=== PATIENT | male | born 1990 | race Caucasian/White ===

== ENCOUNTER 2024-03-16 15:52 | Inpatient (IN) | payer MEDICAID ==
[~2024-03-16] VITALS: Ht 154.2 cm; Wt 107.5 kg
[2024-03-16 17:30] LABS: CHLORIDE 96 mEq/L (98-107); POTASSIUM 4.7 mEq/L (3.5-5.1); SODIUM 133 mEq/L (136-145)
[2024-03-16 17:31] LABS: CARBON DIOXIDE 22 mEq/L (21-32)
[2024-03-16 17:36] LABS: CREATININE 1.3 mg/dL (0.6-1.3); UREA NITROGEN BLOOD 19 mg/dL (9-23)
[2024-03-16 17:40] LABS: INR 1.1; PROTHROMBIN TIME 12.4 sec (9.6-11.0)
[2024-03-16 17:59] LABS: ETHANOL BLOOD < 10 mg/dL (<10); GLUCOSE 474 mg/dL (70-105)
[2024-03-16 18:07] LABS: BASOPHILS % 0.2 % (0.0-2.0); HEMOGLOBIN. 20.4 g/dL (14.0-18.0); LYMPHOCYTES % 2.7 % (20.0-50.0); MEAN CORPUSCULAR HEMOGLOBIN 31.4 pg (28.0-32.0); MEAN CORPUSCULAR HGB CONC 33.3 g/dL (31.0-37.0); MEAN CORPUSCULAR VOLUME 94.1 fL (80.0-94.0); MEAN PLATELET VOLUME 10.7 fl (7.4-10.4); MONOCYTES % 4.8 % (2.0-8.0); NEUTROPHILS % 92.3 % (40.0-76.0); PLATELET 223 x1000/uL (130-400); RED CELL DISTRIBUTION WIDTH 14.8 % (11.6-14.6)
[2024-03-16 18:21] LABS: DIFFERENTIAL COMMENT 1
[2024-03-16 18:24] LABS: HEMATOCRIT. 61.1 % (42.0-52.0)
[2024-03-16] MEDS: SODIUM CHLORIDE 0.9% 2,000 ML IV NR (18:39)
[2024-03-16] MEDS: MORPHINE SULFATE 10 MG/ML INJ (NOT FOR IM USE) IV NR (18:39)
[2024-03-16] MEDS: INSULIN REGULAR (HUMULIN R) 1000UNITS/10ML VIAL IV NR (18:46)
[2024-03-16] MEDS: PIPERACILLIN/TAZO 3.375G/50ML 50 ML IV SCH ×2 (20:46→22:57)
[2024-03-16] MEDS: MORPHINE SULFATE 10 MG/ML INJ (NOT FOR IM USE) IV ONE (20:58)
[2024-03-16] MEDS ORDERED: MAGNESIUM/ALUMINUM HYDROXIDE/SIMETHICONE 30ML UDC PO PRN (22:15)
[2024-03-16] MEDS ORDERED: SODIUM CHLORIDE 0.9% 1,000 ML IV NR (22:15)
[2024-03-16] MEDS ORDERED: GUAIFENESIN 200MG/10ML SUGAR FREE UDC PO PRN (22:15)
[2024-03-16] MEDS ORDERED: DOCUSATE SODIUM 100MG CAPSULE PO PRN (22:15)
[2024-03-16] MEDS ORDERED: DEXTROSE 50% WATER 50ML SYRINGE IV PRN (22:30)
[2024-03-16] MEDS: SODIUM CHLORIDE 0.9% 1,000 ML IV SCH (22:57)
[2024-03-16] MEDS: INSULIN LISPRO 100 UNITS/ML SUBCUT NR (23:22)
[2024-03-17] MEDS: IOHEXOL-300 100 ML BOTTLE ONE (00:37)
[2024-03-17] MEDS: METOPROLOL TARTRATE 5MG/5ML VIAL IV NR (00:48)
[2024-03-17] MEDS: VANCOMYCIN 1.5GM/250ML 250 ML IV NR (00:48)
[2024-03-17 01:24] LABS: CHLORIDE 99 mEq/L (98-107); POTASSIUM 5.9 mEq/L (3.5-5.1); SODIUM 134 mEq/L (136-145)
[2024-03-17 01:26] LABS: CALCIUM 7.7 mg/dL (8.7-10.4); CARBON DIOXIDE 20 mEq/L (21-32)
[2024-03-17 01:30] LABS: GLUCOSE 394 mg/dL (70-105)
[2024-03-17 01:31] LABS: UREA NITROGEN BLOOD 27 mg/dL (9-23)
[2024-03-17 01:32] LABS: ALANINE AMINOTRANSFERASE 74 IU/L (10-49); ALBUMIN 4.2 g/dL (3.2-4.8); ASPARTATE AMINOTRANSFERASE 116 IU/L (<34)
[2024-03-17 01:33] LABS: PHOSPHORUS 2.7 mg/dL (2.5-4.9); PROTEIN TOTAL 6.7 g/dL (6.0-8.3)
[2024-03-17 01:37] LABS: CREATININE 2.3 mg/dL (0.6-1.3)
[2024-03-17] MEDS: ONDANSETRON HCL 4MG/2ML INJ IV PRN (01:40)
[2024-03-17 01:45] VITALS: BP 115/60; PULSE 125; RESP 18; TEMP 36.14
[2024-03-17] MEDS: MORPHINE SULFATE 2 MG/ML INJ (NOT FOR IM USE) IV PRN (03:42)
[2024-03-17] MEDS: PANTOPRAZOLE SODIUM 40 MG/VIAL IV SCH ×2 (03:45→08:33)
[2024-03-17] MEDS: PIPERACILLIN/TAZO 3.375G/50ML 50 ML IV SCH (05:44)
[2024-03-17] MEDS: INSULIN LISPRO 100 UNITS/ML SUBCUT SCH (06:02)
[2024-03-17] MEDS: BLOOD SUGAR DIAGNOSTIC STRIP TEST SCH (07:15)
[2024-03-17 08:00] VITALS: BP 101/61; PULSE 135; RESP 20; TEMP 36.55848; O2SAT 97
[2024-03-17] MEDS: THIAMINE HCL 100MG TABLET PO SCH (08:30)
[2024-03-17] MEDS: FOLIC ACID 1MG TABLET PO SCH (08:30)
[2024-03-17] MEDS: IPRATROPIUM/ALBUTEROL 0.5-3(2.5)MG/3ML NEB HHN PRN (09:37)
[2024-03-17 09:40] VITALS: PULSE 90; RESP 26; O2SAT 92
[2024-03-17] MEDS: VANCOMYCIN 500MG/100ML IV NR (10:06)
[2024-03-17 12:00] VITALS: BP 102/54; PULSE 119; RESP 18; TEMP 36.50292; O2SAT 97
[2024-03-17] MEDS ORDERED: VANCOMYCIN 1G PREMIX 200 ML IV SCH (12:00)
[2024-03-17 12:40] LABS: HEMOGLOBIN. 16.6 g/dL (14.0-18.0); MEAN CORPUSCULAR HEMOGLOBIN 31.2 pg (28.0-32.0); MEAN CORPUSCULAR HGB CONC 31.9 g/dL (31.0-37.0); MEAN CORPUSCULAR VOLUME 97.7 fL (80.0-94.0); MEAN PLATELET VOLUME 11.6 fl (7.4-10.4); PLATELET 218 x1000/uL (130-400); RED BLOOD CELL COUNT 5.32 mill/uL (4.7-6.1); WHITE BLOOD COUNT 20.3 x1000/uL (4.5-11.0)
[2024-03-17 12:45] LABS: DIFFERENTIAL COMMENT 1
[2024-03-17 12:54] LABS: TROPONIN I HIGH SENSITIVITY 49 ng/L (3.0-53)
[2024-03-17 12:55] LABS: CREATINE KINASE 691 IU/L (46-171)
[2024-03-17 12:57] LABS: T4 FREE 1.48 ng/dL (0.89-1.76); THYROID STIMULATING HORMONE 4.92 uIU/mL (0.55-4.78)
[2024-03-17] MEDS ORDERED: LORAZEPAM 1MG TABLET PO PRN (14:00)
[2024-03-17 16:00] VITALS: BP 110/74; PULSE 133; RESP 19; TEMP 36.44736; O2SAT 98
[2024-03-17 17:12] LABS: POTASSIUM 5.4 mEq/L (3.5-5.1)
[2024-03-17 17:13] LABS: CALCIUM 7.2 mg/dL (8.7-10.4)
[2024-03-17 17:20] LABS: CREATINE KINASE MB FRACTION 1.7 ng/mL (0.5-3.6)
[2024-03-17 17:22] LABS: FOLIC ACID (FOLATE) SERUM 5.5 ng/mL (>5.38)
[2024-03-17 17:26] LABS: CREATININE 4.2 mg/dL (0.6-1.3)
[2024-03-17 17:54] LABS: CLARITY URINE TURBID (CLEAR); COLOR URINE ORANGE (YELLOW); GLUCOSE URINE 2+ (NEGATIVE); KETONES URINE TRACE (NEGATIVE); LEUKOCYTE ESTERASE URINE TRACE (NEGATIVE); NITRITE URINE POSITIVE (NEGATIVE); OCCULT BLOOD URINE 2+ (NEGATIVE); PROTEIN URINE 2+ (NEGATIVE); SPECIFIC GRAVITY URINE 1.063 (1.005-1.030)
[2024-03-17 18:15] LABS: *AMPHETAMINES SCREEN URINE NEGATIVE (NEGATIVE); *BARBITURATES SCREEN URINE NEGATIVE (NEGATIVE); *BENZODIAZEPINES SCREEN URINE NEGATIVE (NEGATIVE); *COCAINE SCREEN URINE NEGATIVE (NEGATIVE); METHADONE URINE SCREEN NEGATIVE (NEGATIVE); OPIATES URINE SCREEN PRESUMPTIVE POSITIVE (NEGATIVE); PHENCYCLIDINE URINE SCREEN NEGATIVE (NEGATIVE)
[2024-03-17 18:16] LABS: CANNABINOID URINE SCREEN NEGATIVE (NEGATIVE); ECSTASY MDMA SCREEN URINE NEGATIVE (NEGATIVE)
[2024-03-17 18:27] LABS: SQUAMOUS EPITHELIAL CELL URINE 1+ /lpf (RARE/1+)
[2024-03-17 18:30] LABS: AMORPHOUS SEDIMENT URINE 1+ /lpf; BACTERIA URINE 2+
[2024-03-17] MEDS: SODIUM BICARBONATE 8.4% 50MEQ/50ML SYR IV NR ×2 (18:39→19:15)
[2024-03-17] MEDS: DEXTROSE 50% WATER 50ML SYRINGE IV NR (18:40)
[2024-03-17] MEDS: INSULIN REGULAR (HUMULIN R) 1000UNITS/10ML VIAL IV NR (18:41)
[2024-03-17 20:00] VITALS: BP 120/80; PULSE 106; RESP 18; TEMP 36.6696; O2SAT 95
[2024-03-17 21:32] LABS: CHLORIDE 104 mEq/L (98-107); POTASSIUM 5.9 mEq/L (3.5-5.1); SODIUM 135 mEq/L (136-145)
[2024-03-17 21:33] LABS: CALCIUM 6.7 mg/dL (8.7-10.4); CARBON DIOXIDE 16 mEq/L (21-32)
[2024-03-17 21:38] LABS: GLUCOSE 286 mg/dL (70-105)
[2024-03-17 21:39] LABS: UREA NITROGEN BLOOD 53 mg/dL (9-23)
[2024-03-17] MEDS: METOPROLOL TARTRATE 25MG TABLET PO NR (21:40)
[2024-03-17 21:41] LABS: PHOSPHORUS 1.9 mg/dL (2.5-4.9)
[2024-03-17 21:41] LABS: PLATELET ESTIMATE NORMAL
[2024-03-17] MEDS: SODIUM BICARBONATE 75 MEQ in SODIUM CHLORIDE 0.45% 1,000 ML IV SCH (22:08)
[2024-03-18] VITALS (33 sets, daily range): BP systolic 70–141; BP diastolic 27–86; PULSE 105–211; RESP 17–32; TEMP 36.114–37.55856; O2SAT 92–100
[2024-03-18] MEDS ORDERED: LIDOCAINE HCL 1% 10 MG/ML 10ML VIAL ONE (07:37)
[2024-03-18 07:43] LABS: CARBON DIOXIDE 19 mEq/L (21-32); CHLORIDE 102 mEq/L (98-107); SODIUM 134 mEq/L (136-145)
[2024-03-18 07:44] LABS: CALCIUM 6.2 mg/dL (8.7-10.4)
[2024-03-18 07:49] LABS: GLUCOSE 200 mg/dL (70-105); UREA NITROGEN BLOOD 69 mg/dL (9-23)
[2024-03-18 07:50] LABS: ALANINE AMINOTRANSFERASE 50 IU/L (10-49); ALBUMIN 3.7 g/dL (3.2-4.8); AMYLASE 805 IU/L (30-118); ASPARTATE AMINOTRANSFERASE 111 IU/L (<34); PROTEIN TOTAL 6.1 g/dL (6.0-8.3)
[2024-03-18 07:51] LABS: BILIRUBIN DIRECT 1.1 mg/dL (<=3.0); BILIRUBIN TOTAL 1.9 mg/dL (0.1-1.0); CREATINE KINASE 1088 IU/L (46-171)
[2024-03-18] MEDS: MULTIVITAMINS,THER W-MINERALS TABLET PO SCH (08:54)
[2024-03-18] MEDS ORDERED: THIAMINE HCL 100MG TABLET PO SCH (09:00)
[2024-03-18 09:11] LABS: CREATININE 6.6 mg/dL (0.6-1.3); POTASSIUM 6.7 mEq/L (3.5-5.1)
[2024-03-18] MEDS ORDERED: NALOXONE HCL 0.4MG/ML VIAL IV PRN (09:15)
[2024-03-18 09:17] LABS: TRIGLYCERIDE 202 mg/dL (0-150)
[2024-03-18 09:18] LABS: LDL CHOLESTEROL 24 mg/dL (5-100)
[2024-03-18 09:19] LABS: CHOLESTEROL 75 mg/dL (<200); HDL CHOLESTEROL < 20 mg/dL (>55)
[2024-03-18] MEDS ORDERED: ALBUTEROL (0.083%) 2.5MG/3ML NEB HHN NR (09:30)
[2024-03-18 09:37] LABS: T4 FREE 1.39 ng/dL (0.89-1.76)
[2024-03-18] MEDS: DEXTROSE 50% WATER 50ML SYRINGE IV NR (10:00)
[2024-03-18] MEDS: SODIUM BICARBONATE 8.4% 50MEQ/50ML SYR IV NR (10:01)
[2024-03-18] MEDS: FAMOTIDINE 20MG/2ML VIAL IV SCH (10:01)
[2024-03-18] MEDS: FUROSEMIDE 100MG/10ML VIAL IVP NR (10:01)
[2024-03-18] MEDS: INSULIN REGULAR (HUMULIN R) 1000UNITS/10ML VIAL IV NR (10:03)
[2024-03-18] MEDS: CALCIUM CHLORIDE 1GM/10ML SYR IV NR (10:51)
[2024-03-18 11:38] LABS: BG BASE EXCESS -9.5 mmol/L (-2.0-3.0); BG CARBOXYHEMOGLOBIN 1.6 % (0.5-1.5); BG DEOXYHEMOGLOBIN 4.7 % (0.0-5.0); BG FRACTION INSPIRED OXYGEN 44; BG HCO3 ACT 17.4 mmol/L (21.0-28.0); BG METHEMOGLOBIN 0.5 % (0.5-1.5); BG OXYGEN SATURATION 95.2 % (94.0-98.0); BG OXYHEMOGLOBIN 93.2 % (94.0-98.0); BG PCO2 41.5 mmHg (35.0-48.0); BG PH 7.241 (7.350-7.450); BG SAMPLE SITE RIGHT BRACHIAL; BG TOTAL HEMOGLOBIN 14.1 g/dL (13.5-17.5); BG VENT MODE NASAL CANNULA
[2024-03-18 13:48] LABS: BASOPHILS % 0.2 % (0.0-2.0); DIFFERENTIAL COMMENT 0; EOSINOPHILS % 0.2 % (0.0-5.0); HEMATOCRIT. 38.9 % (42.0-52.0); HEMOGLOBIN. 12.7 g/dL (14.0-18.0); LYMPHOCYTES % 8.4 % (20.0-50.0); MEAN CORPUSCULAR HEMOGLOBIN 31.2 pg (28.0-32.0); MEAN CORPUSCULAR HGB CONC 32.7 g/dL (31.0-37.0); MEAN CORPUSCULAR VOLUME 95.5 fL (80.0-94.0); MEAN PLATELET VOLUME 10.9 fl (7.4-10.4); MONOCYTES % 11.8 % (2.0-8.0); NEUTROPHILS % 79.4 % (40.0-76.0); PLATELET 124 x1000/uL (130-400); RED BLOOD CELL COUNT 4.07 mill/uL (4.7-6.1); RED CELL DISTRIBUTION WIDTH 15.1 % (11.6-14.6); WHITE BLOOD COUNT 9.3 x1000/uL (4.5-11.0)
[2024-03-18 13:52] LABS: CARBON DIOXIDE 24 mEq/L (21-32); CHLORIDE 98 mEq/L (98-107); POTASSIUM 5.3 mEq/L (3.5-5.1); SODIUM 133 mEq/L (136-145)
[2024-03-18 13:57] LABS: GLUCOSE 194 mg/dL (70-105)
[2024-03-18 13:58] LABS: UREA NITROGEN BLOOD 71 mg/dL (9-23)
[2024-03-18 13:59] LABS: ALANINE AMINOTRANSFERASE 43 IU/L (10-49); ALBUMIN 3.3 g/dL (3.2-4.8); ASPARTATE AMINOTRANSFERASE 85 IU/L (<34)
[2024-03-18 14:00] LABS: BILIRUBIN TOTAL 1.5 mg/dL (0.1-1.0); PROTEIN TOTAL 5.3 g/dL (6.0-8.3)
[2024-03-18 14:06] LABS: CREATININE 6.3 mg/dL (0.6-1.3)
[2024-03-18] MEDS: SODIUM CHLORIDE 0.9% 1,000 ML IV SCH (15:26)
[2024-03-18] MEDS: SODIUM ZIRCONIUM CYCLOSILICATE 10GM/PACKET PO NR (15:30)
[2024-03-18 16:21] LABS: BG BASE EXCESS -9.1 mmol/L (-2.0-3.0); BG CARBOXYHEMOGLOBIN 1.6 % (0.5-1.5); BG DEOXYHEMOGLOBIN 3.8 % (0.0-5.0); BG FRACTION INSPIRED OXYGEN 50; BG METHEMOGLOBIN 0.4 % (0.5-1.5); BG OXYGEN SATURATION 96.1 % (94.0-98.0); BG OXYHEMOGLOBIN 94.2 % (94.0-98.0); BG PCO2 43.5 mmHg (35.0-48.0); BG PH 7.235 (7.350-7.450); BG PO2 84.3 mmHg (83.0-108.0); BG SAMPLE SITE RIGHT BRACHIAL; BG TOTAL HEMOGLOBIN 13.9 g/dL (13.5-17.5); BG VENT MODE NASAL CANNULA
[2024-03-18 19:58] LABS: POTASSIUM 5.4 mEq/L (3.5-5.1)
[2024-03-18] MEDS ORDERED: NOREPINEPHRINE 32 MG in DEXT 5% WATER 218 ML IV PRN (20:00)
[2024-03-18] MEDS ORDERED: PROPOFOL 10MG/ML 100ML 100 ML IV PRN (20:00)
[2024-03-18 20:04] LABS: CREATINE KINASE MB FRACTION 3.9 ng/mL (0.5-3.6)
[2024-03-18] MEDS: AMIODARONE 150MG/100ML D5W 100 ML IV NR (20:35)
[2024-03-18] MEDS: VASOPRESSIN 20 UNIT in SODIUM CHLORIDE 0.9% 99 ML IV PRN (20:36)
[2024-03-18] MEDS: SODIUM CHLORIDE 0.9% 1,000 ML IV ONE (20:38)
[2024-03-18] MEDS ORDERED: PHENYLEPHRINE 100 MG in DEXT 5% WATER 240 ML IV PRN (20:45)
[2024-03-18] MEDS ORDERED: NOREPINEPHRINE 32 MG in SODIUM CHLORIDE 0.9% 218 ML IV PRN (20:56)
[2024-03-18 21:01] LABS: BG BASE EXCESS -14.1 mmol/L (-2.0-3.0); BG CARBOXYHEMOGLOBIN 0.7 % (0.5-1.5); BG DEOXYHEMOGLOBIN 6.3 % (0.0-5.0); BG FRACTION INSPIRED OXYGEN 100; BG HCO3 ACT 14.7 mmol/L (21.0-28.0); BG METHEMOGLOBIN 0.4 % (0.5-1.5); BG OXYGEN SATURATION 93.6 % (94.0-98.0); BG OXYHEMOGLOBIN 92.6 % (94.0-98.0); BG PCO2 45.1 mmHg (35.0-48.0); BG PO2 75.9 mmHg (83.0-108.0); BG SAMPLE SITE LEFT RADIAL; BG TOTAL HEMOGLOBIN 12.8 g/dL (13.5-17.5); BG VENT MODE VENT - AC
[2024-03-18 21:13] LABS: POTASSIUM 6.1 mEq/L (3.5-5.1)
[2024-03-18] MEDS: AMIODARONE HCL 450 MG in DEXT 5% WATER 241 ML IV SCH (21:14)
[2024-03-18 21:21] LABS: CREATINE KINASE MB FRACTION 5.8 ng/mL (0.5-3.6)
[2024-03-18] MEDS: PIPERACILLIN/TAZO 3.375G/50ML IV SCH (21:40)
[2024-03-18] MEDS ORDERED: CALCIUM GLUCONATE 100MG/ML 10ML VIAL IV ONE (22:00)
[2024-03-18] MEDS: MIDAZOLAM HCL 100 MG in SODIUM CHLORIDE 0.9% 80 ML IV PRN (22:47)
[2024-03-18] MEDS: SODIUM BICARBONATE 150 MEQ in DEXTROSE 5% WATER 850 ML IV SCH (22:48)
[2024-03-18] MEDS: DEXTROSE 50% WATER 50ML SYRINGE IV SCH (23:27)
[2024-03-18] MEDS: INSULIN REGULAR (HUMULIN R) 1000UNITS/10ML VIAL IV SCH (23:27)
[2024-03-18] MEDS: SODIUM BICARBONATE 8.4% 50MEQ/50ML SYR IV SCH (23:29)
[2024-03-18] MEDS: CALCIUM GLUCONATE 100MG/ML 10ML VIAL IV NR (23:29)
[2024-03-18] MEDS ORDERED: FENTANYL 2500MCG/250ML PMX 250 ML IV PRN (23:45)
[2024-03-19] VITALS (118 sets, daily range): BP systolic 92–147; BP diastolic 55–98; PULSE 99–121; RESP 4–31; TEMP 37.6–38.9; O2SAT 89–100
[2024-03-19] MEDS: FENTANYL CITRATE 1,000 MCG in SODIUM CHLORIDE 0.9% 80 ML IV PRN (00:45)
[2024-03-19 00:48] LABS: CALCIUM 6.4 mg/dL (8.7-10.4)
[2024-03-19 01:01] LABS: BG BASE EXCESS -12.6 mmol/L (-2.0-3.0); BG CARBOXYHEMOGLOBIN 0.3 % (0.5-1.5); BG DEOXYHEMOGLOBIN 1.4 % (0.0-5.0); BG FRACTION INSPIRED OXYGEN 100; BG HCO3 ACT 15.5 mmol/L (21.0-28.0); BG METHEMOGLOBIN 0.5 % (0.5-1.5); BG OXYGEN SATURATION 98.6 % (94.0-98.0); BG OXYHEMOGLOBIN 97.8 % (94.0-98.0); BG PH 7.165 (7.350-7.450); BG PO2 118.3 mmHg (83.0-108.0); BG SAMPLE SITE LEFT RADIAL; BG TOTAL HEMOGLOBIN 12.5 g/dL (13.5-17.5); BG VENT MODE VENT - AC
[2024-03-19 01:03] LABS: CREATININE 8.3 mg/dL (0.6-1.3)
[2024-03-19 01:04] LABS: POTASSIUM 6.9 mEq/L (3.5-5.1)
[2024-03-19] MEDS: SODIUM BICARBONATE 8.4% 50MEQ/50ML SYR IV NR ×2 (01:29→15:54)
[2024-03-19] MEDS: INSULIN REGULAR (HUMULIN R) 1000UNITS/10ML VIAL IV NR ×2 (01:29→15:56)
[2024-03-19] MEDS: CALCIUM GLUCONATE 100MG/ML 10ML VIAL IV NR (01:29)
[2024-03-19] MEDS: DEXTROSE 50% WATER 50ML SYRINGE IV NR ×2 (01:29→15:53)
[2024-03-19] MEDS: SODIUM ZIRCONIUM CYCLOSILICATE 10GM/PACKET PO NR (01:29)
[2024-03-19] MEDS: ACETAMINOPHEN 325MG TABLET PO PRN (01:30)
[2024-03-19 05:55] LABS: BG BASE EXCESS -9.7 mmol/L (-2.0-3.0); BG CARBOXYHEMOGLOBIN 0.2 % (0.5-1.5); BG DEOXYHEMOGLOBIN 0.5 % (0.0-5.0); BG FRACTION INSPIRED OXYGEN 100; BG METHEMOGLOBIN 0.4 % (0.5-1.5); BG OXYGEN SATURATION 99.5 % (94.0-98.0); BG OXYHEMOGLOBIN 98.9 % (94.0-98.0); BG PCO2 40.6 mmHg (35.0-48.0); BG PH 7.241 (7.350-7.450); BG PO2 161.3 mmHg (83.0-108.0); BG SAMPLE SITE RIGHT RADIAL; BG TOTAL HEMOGLOBIN 12.4 g/dL (13.5-17.5); BG VENT MODE VENT - AC
[2024-03-19 06:23] LABS: CREATINE KINASE MB FRACTION 12.2 ng/mL (0.5-3.6); LACTIC ACID 3.1 mmol/L (0.4-2.0)
[2024-03-19 06:24] LABS: CHLORIDE 99 mEq/L (98-107)
[2024-03-19 06:25] LABS: CALCIUM 6.4 mg/dL (8.7-10.4); CARBON DIOXIDE 15 mEq/L (21-32); SODIUM 132 mEq/L (136-145)
[2024-03-19 06:30] LABS: GLUCOSE 281 mg/dL (70-105)
[2024-03-19 06:31] LABS: ALANINE AMINOTRANSFERASE 71 IU/L (10-49); PROTEIN TOTAL 5.7 g/dL (6.0-8.3); TRIGLYCERIDE 240 mg/dL (0-150); UREA NITROGEN BLOOD 97 mg/dL (9-23)
[2024-03-19] MEDS: MIDAZOLAM 100MG/100ML PREMIX IV PRN (06:31)
[2024-03-19 06:32] LABS: ALBUMIN 3.4 g/dL (3.2-4.8); AMYLASE 1104 IU/L (30-118); ASPARTATE AMINOTRANSFERASE 173 IU/L (<34); BILIRUBIN DIRECT 0.8 mg/dL (<=3.0)
[2024-03-19 06:33] LABS: BILIRUBIN TOTAL 1.2 mg/dL (0.1-1.0); PHOSPHORUS 5.7 mg/dL (2.5-4.9)
[2024-03-19 06:37] LABS: HEPATITIS B SURFACE ANTIGEN NEGATIVE (Negative)
[2024-03-19 06:38] LABS: BASOPHILS % 0.2 % (0.0-2.0); DIFFERENTIAL COMMENT 0; EOSINOPHILS % 3.3 % (0.0-5.0); HEMATOCRIT. 35.7 % (42.0-52.0); HEMOGLOBIN. 11.6 g/dL (14.0-18.0); LYMPHOCYTES % 10.5 % (20.0-50.0); MEAN CORPUSCULAR HEMOGLOBIN 31.7 pg (28.0-32.0); MEAN CORPUSCULAR HGB CONC 32.6 g/dL (31.0-37.0); MEAN CORPUSCULAR VOLUME 97.2 fL (80.0-94.0); MEAN PLATELET VOLUME 11.7 fl (7.4-10.4); MONOCYTES % 13.8 % (2.0-8.0); NEUTROPHILS % 72.2 % (40.0-76.0); PLATELET 150 x1000/uL (130-400); RED BLOOD CELL COUNT 3.67 mill/uL (4.7-6.1); RED CELL DISTRIBUTION WIDTH 15.6 % (11.6-14.6); WHITE BLOOD COUNT 9.1 x1000/uL (4.5-11.0)
[2024-03-19 06:56] LABS: POTASSIUM 7.1 mEq/L (3.5-5.1)
[2024-03-19 06:57] LABS: CREATININE 8.8 mg/dL (0.6-1.3)
[2024-03-19 06:58] LABS: HEPATITIS A AB IGM NEGATIVE (Negative); HEPATITIS B CORE AB IGM NEGATIVE (Negative)
[2024-03-19 06:59] LABS: HEPATITIS C AB NON REACTIVE (Neg) (Negative)
[2024-03-19] MEDS: LIDOCAINE HCL 1% 10 MG/ML 10ML VIAL ONE (08:05)
[2024-03-19 11:26] LABS: CREATININE URINE RANDOM 93.8 mg/dL
[2024-03-19 12:05] LABS: HEMATOCRIT 34.4 % (42.0-52.0); MEAN CORPUSCULAR HEMOGLOBIN 30.9 pg (28.0-32.0); MEAN CORPUSCULAR HGB CONC 31.8 g/dL (31.0-37.0); PLATELET 123 x1000/uL (130-400); RED BLOOD CELL COUNT 3.55 mill/uL (4.7-6.1); RED CELL DISTRIBUTION WIDTH 15.9 % (11.6-14.6); WHITE BLOOD COUNT 7.2 x1000/uL (4.5-11.0)
[2024-03-19 14:12] LABS: CREATININE 9.5 mg/dL (0.6-1.3)
[2024-03-19 14:13] LABS: CALCIUM 5.9 mg/dL (8.7-10.4); POTASSIUM 6.8 mEq/L (3.5-5.1)
[2024-03-19 15:37] LABS: HEMATOCRIT 35.9 % (42.0-52.0); HEMOGLOBIN 11.5 g/dL (14.0-18.0); MEAN CORPUSCULAR HEMOGLOBIN 31.1 pg (28.0-32.0); MEAN CORPUSCULAR VOLUME 96.9 fL (80.0-94.0); PLATELET 127 x1000/uL (130-400); RED CELL DISTRIBUTION WIDTH 15.9 % (11.6-14.6); WHITE BLOOD COUNT 7.9 x1000/uL (4.5-11.0)
[2024-03-19] MEDS: CALCIUM GLUCONATE 1GM PREMIX 50 ML IV NR (16:08)
[2024-03-19] MEDS: ACETAMINOPHEN 650MG/20.3ML UDC PO PRN (16:30)
[2024-03-19] MEDS: ACETAMINOPHEN 1000MG/100ML 100 ML IV NR (20:58)
[2024-03-20] VITALS (104 sets, daily range): BP systolic 113–150; BP diastolic 77–104; PULSE 106–136; RESP 16–57; TEMP 37.2–38.8; O2SAT 91–100
[2024-03-20] MEDS: DEXTROSE 50% WATER 50ML SYRINGE IV SCH (01:45)
[2024-03-20] MEDS: INSULIN REGULAR (HUMULIN R) 1000UNITS/10ML VIAL IV SCH (01:45)
[2024-03-20] MEDS: CALCIUM CHLORIDE 1GM/10ML SYR IV SCH (01:45)
[2024-03-20] MEDS: SODIUM BICARBONATE 8.4% 50MEQ/50ML SYR IV SCH (01:45)
[2024-03-20] MEDS: SODIUM POLYSTYRENE SULFONATE 15 G/60 ML BOT PO SCH (01:45)
[2024-03-20] MEDS: SODIUM ZIRCONIUM CYCLOSILICATE 10GM/PACKET PO SCH (01:45)
[2024-03-20 04:44] LABS: BG CARBOXYHEMOGLOBIN 0.4 % (0.5-1.5); BG DEOXYHEMOGLOBIN 2.5 % (0.0-5.0); BG FRACTION INSPIRED OXYGEN 50; BG HCO3 ACT 24.7 mmol/L (21.0-28.0); BG OXYGEN SATURATION 97.5 % (94.0-98.0); BG OXYHEMOGLOBIN 97.1 % (94.0-98.0); BG PCO2 32.5 mmHg (35.0-48.0); BG PH 7.498 (7.350-7.450); BG PO2 86.7 mmHg (83.0-108.0); BG SAMPLE SITE RIGHT RADIAL; BG TOTAL HEMOGLOBIN 13.5 g/dL (13.5-17.5); BG VENT MODE VENT - AC
[2024-03-20 06:33] LABS: BASOPHILS % 0.3 % (0.0-2.0); HEMATOCRIT. 34.4 % (42.0-52.0); HEMOGLOBIN. 11.5 g/dL (14.0-18.0); LYMPHOCYTES % 8.3 % (20.0-50.0); MEAN CORPUSCULAR HEMOGLOBIN 31.4 pg (28.0-32.0); MEAN CORPUSCULAR HGB CONC 33.3 g/dL (31.0-37.0); MEAN CORPUSCULAR VOLUME 94.2 fL (80.0-94.0); MEAN PLATELET VOLUME 10.8 fl (7.4-10.4); MONOCYTES % 9.5 % (2.0-8.0); NEUTROPHILS % 80.9 % (40.0-76.0); PLATELET 151 x1000/uL (130-400); RED BLOOD CELL COUNT 3.66 mill/uL (4.7-6.1); RED CELL DISTRIBUTION WIDTH 15.4 % (11.6-14.6); WHITE BLOOD COUNT 8.5 x1000/uL (4.5-11.0)
[2024-03-20 06:46] LABS: CHLORIDE 98 mEq/L (98-107); POTASSIUM 4.4 mEq/L (3.5-5.1); SODIUM 138 mEq/L (136-145)
[2024-03-20 06:49] LABS: CARBON DIOXIDE 22 mEq/L (21-32)
[2024-03-20 06:50] LABS: CALCIUM 6.9 mg/dL (8.7-10.4)
[2024-03-20 06:54] LABS: PROTEIN TOTAL 5.9 g/dL (6.0-8.3)
[2024-03-20 06:55] LABS: ALANINE AMINOTRANSFERASE 47 IU/L (10-49); BILIRUBIN TOTAL 1.2 mg/dL (0.1-1.0); GLUCOSE 228 mg/dL (70-105); UREA NITROGEN BLOOD 88 mg/dL (9-23)
[2024-03-20 06:56] LABS: AMYLASE 505 IU/L (30-118)
[2024-03-20 06:57] LABS: ALBUMIN 3.5 g/dL (3.2-4.8); ASPARTATE AMINOTRANSFERASE 73 IU/L (<34); BILIRUBIN DIRECT 0.7 mg/dL (<=3.0); PHOSPHORUS 4.3 mg/dL (2.5-4.9)
[2024-03-20 07:05] LABS: CREATININE 8.8 mg/dL (0.6-1.3)
[2024-03-20] MEDS: ACETAMINOPHEN 1000MG/100ML 100 ML IV NR (12:01)
[2024-03-20] MEDS: VANCOMYCIN 750MG PREMIX 150 ML IV NR (12:01)
[2024-03-20] MEDS: MEROPENEM 500MG/50ML 50 ML IV SCH (22:16)
[2024-03-21] VITALS (103 sets, daily range): BP systolic 112–152; BP diastolic 74–121; PULSE 83–123; RESP 20–42; TEMP 36.55848–38.16972; O2SAT 96–100
[2024-03-21 05:48] LABS: POTASSIUM 4.3 mEq/L (3.5-5.1)
[2024-03-21 05:49] LABS: CALCIUM 6.6 mg/dL (8.7-10.4); HEMATOCRIT. 35.1 % (42.0-52.0); HEMOGLOBIN. 11.5 g/dL (14.0-18.0); MEAN CORPUSCULAR HEMOGLOBIN 30.8 pg (28.0-32.0); MEAN CORPUSCULAR HGB CONC 32.8 g/dL (31.0-37.0); PLATELET 135 x1000/uL (130-400); RED BLOOD CELL COUNT 3.73 mill/uL (4.7-6.1); RED CELL DISTRIBUTION WIDTH 15.5 % (11.6-14.6); WHITE BLOOD COUNT 10.8 x1000/uL (4.5-11.0)
[2024-03-21 05:57] LABS: BILIRUBIN TOTAL 0.8 mg/dL (0.1-1.0)
[2024-03-21 06:16] LABS: CREATININE 10.9 mg/dL (0.6-1.3)
[2024-03-21 06:23] LABS: DIFFERENTIAL COMMENT 1
[2024-03-21 07:40] LABS: ERYTHROCYTE SEDIMENTATION RATE 94 mm/hr (0-15)
[2024-03-21 17:22] LABS: NUCLEATED RED BLOOD CELLS 2 /100 WBC; PLATELET ESTIMATE NORMAL
[2024-03-21] MEDS: CHLORPROMAZINE HCL 25 MG TABLET PO NR (17:43)
[2024-03-21 22:08] LABS: AMMONIA < 17 uMol/L (<32)
[2024-03-22] VITALS (102 sets, daily range): BP systolic 110–160; BP diastolic 56–122; PULSE 98–140; RESP 16–36; TEMP 98.6–103; O2SAT 95–100
[2024-03-22 06:31] LABS: HEMATOCRIT. 33.2 % (42.0-52.0); HEMOGLOBIN. 10.9 g/dL (14.0-18.0); MEAN CORPUSCULAR HEMOGLOBIN 30.8 pg (28.0-32.0); MEAN CORPUSCULAR HGB CONC 32.9 g/dL (31.0-37.0); MEAN CORPUSCULAR VOLUME 93.6 fL (80.0-94.0); PLATELET 145 x1000/uL (130-400); RED BLOOD CELL COUNT 3.55 mill/uL (4.7-6.1); RED CELL DISTRIBUTION WIDTH 15.5 % (11.6-14.6); WHITE BLOOD COUNT 14.4 x1000/uL (4.5-11.0)
[2024-03-22 06:35] LABS: DIFFERENTIAL COMMENT 1
[2024-03-22 06:38] LABS: CARBON DIOXIDE 17 mEq/L (21-32); CHLORIDE 91 mEq/L (98-107); POTASSIUM 4.7 mEq/L (3.5-5.1); SODIUM 131 mEq/L (136-145)
[2024-03-22 06:39] LABS: CALCIUM 7.6 mg/dL (8.7-10.4)
[2024-03-22 06:44] LABS: GLUCOSE 268 mg/dL (70-105); UREA NITROGEN BLOOD 100 mg/dL (9-23)
[2024-03-22 06:45] LABS: ALANINE AMINOTRANSFERASE 24 IU/L (10-49); ALBUMIN 3.3 g/dL (3.2-4.8); AMYLASE 53 IU/L (30-118); ASPARTATE AMINOTRANSFERASE 55 IU/L (<34)
[2024-03-22 06:46] LABS: BILIRUBIN DIRECT 0.4 mg/dL (<=3.0); BILIRUBIN TOTAL 0.6 mg/dL (0.1-1.0); PROTEIN TOTAL 5.7 g/dL (6.0-8.3)
[2024-03-22 08:09] LABS: PHOSPHORUS 9.4 mg/dL (2.5-4.9)
[2024-03-22] MEDS: LANTHANUM CARBONATE 500MG CHEW TABLET PO SCH (08:47)
[2024-03-22 10:08] LABS: BG BASE EXCESS -10.3 mmol/L (-2.0-3.0); BG CARBOXYHEMOGLOBIN 0.3 % (0.5-1.5); BG DEOXYHEMOGLOBIN 2.7 % (0.0-5.0); BG FRACTION INSPIRED OXYGEN 40; BG HCO3 ACT 14.4 mmol/L (21.0-28.0); BG METHEMOGLOBIN 0.3 % (0.5-1.5); BG OXYGEN SATURATION 97.3 % (94.0-98.0); BG OXYHEMOGLOBIN 96.7 % (94.0-98.0); BG PCO2 28.8 mmHg (35.0-48.0); BG PH 7.317 (7.350-7.450); BG PO2 94.2 mmHg (83.0-108.0); BG SAMPLE SITE RIGHT RADIAL; BG TOTAL HEMOGLOBIN 12.6 g/dL (13.5-17.5); BG VENT MODE VENT - AC
[2024-03-22] MEDS: PHENOBARBITAL SODIUM 130MG/ML 1ML IV NR (11:17)
[2024-03-22] MEDS: MULTIVITAMINS,THER W-MINERALS TABLET PO SCH (11:30)
[2024-03-22] MEDS: THIAMINE HCL 100 MG/1 ML 2ML VIAL IM SCH (11:30)
[2024-03-22] MEDS: LORAZEPAM 2MG/ML INJ IV PRN (12:28)
[2024-03-23] VITALS (106 sets, daily range): BP systolic 100–157; BP diastolic 68–110; PULSE 100–127; RESP 15–34; TEMP 38.55864–38.6142; O2SAT 95–100
[2024-03-23 06:10] LABS: HEMATOCRIT. 35.5 % (42.0-52.0); HEMOGLOBIN. 11.6 g/dL (14.0-18.0); MEAN CORPUSCULAR HEMOGLOBIN 30.6 pg (28.0-32.0); MEAN CORPUSCULAR HGB CONC 32.7 g/dL (31.0-37.0); MEAN CORPUSCULAR VOLUME 93.6 fL (80.0-94.0); MEAN PLATELET VOLUME 10.7 fl (7.4-10.4); PLATELET 169 x1000/uL (130-400); RED BLOOD CELL COUNT 3.79 mill/uL (4.7-6.1); WHITE BLOOD COUNT 18.1 x1000/uL (4.5-11.0)
[2024-03-23 06:32] LABS: CHLORIDE 89 mEq/L (98-107); POTASSIUM 5.8 mEq/L (3.5-5.1); SODIUM 128 mEq/L (136-145)
[2024-03-23 06:33] LABS: CARBON DIOXIDE 18 mEq/L (21-32)
[2024-03-23 06:38] LABS: GLUCOSE 344 mg/dL (70-105)
[2024-03-23 06:39] LABS: AMYLASE 42 IU/L (30-118)
[2024-03-23 06:40] LABS: ALANINE AMINOTRANSFERASE 20 IU/L (10-49); ALBUMIN 3.4 g/dL (3.2-4.8); ASPARTATE AMINOTRANSFERASE 56 IU/L (<34)
[2024-03-23 06:41] LABS: BILIRUBIN DIRECT 0.4 mg/dL (<=3.0); BILIRUBIN TOTAL 0.6 mg/dL (0.1-1.0); PROTEIN TOTAL 6.1 g/dL (6.0-8.3)
[2024-03-23 06:48] LABS: CREATININE 11.7 mg/dL (0.6-1.3)
[2024-03-23 06:49] LABS: UREA NITROGEN BLOOD 128 mg/dL (9-23)
[2024-03-23] MEDS ORDERED: SODIUM POLYSTYRENE SULFONATE 15 G/60 ML BOT PO ONE (07:15)
[2024-03-23 07:24] LABS: DIFFERENTIAL COMMENT 1
[2024-03-23] MEDS: SODIUM ZIRCONIUM CYCLOSILICATE 10GM/PACKET PO NR (09:18)
[2024-03-23 17:17] LABS: ANISOCYTOSIS 1+; PLATELET ESTIMATE NORMAL
[2024-03-23 17:50] LABS: ANISOCYTOSIS 1+; PLATELET ESTIMATE SLIGHTLY DECREASED
[2024-03-23] MEDS ORDERED: VANCOMYCIN 750MG PREMIX 150 ML IV NR (18:00)
[2024-03-23 22:04] LABS: BG CARBOXYHEMOGLOBIN 0.3 % (0.5-1.5); BG DEOXYHEMOGLOBIN 1.8 % (0.0-5.0); BG FRACTION INSPIRED OXYGEN 40; BG HCO3 ACT 17.6 mmol/L (21.0-28.0); BG METHEMOGLOBIN 0.1 % (0.5-1.5); BG OXYGEN SATURATION 98.2 % (94.0-98.0); BG OXYHEMOGLOBIN 97.8 % (94.0-98.0); BG PCO2 29.3 mmHg (35.0-48.0); BG PH 7.397 (7.350-7.450); BG PO2 104.6 mmHg (83.0-108.0); BG SAMPLE SITE RIGHT RADIAL; BG TOTAL HEMOGLOBIN 12.7 g/dL (13.5-17.5); BG TOTAL RESPIRATORY RATE 22 b/min; BG VENT MODE VENT - P/C
[2024-03-24] VITALS (104 sets, daily range): BP systolic 118–181; BP diastolic 72–116; PULSE 98–128; RESP 15–37; TEMP 98.2–101.8; O2SAT 97–100
[2024-03-24 07:19] LABS: HEMOGLOBIN. 11.3 g/dL (14.0-18.0); MEAN CORPUSCULAR HEMOGLOBIN 31.1 pg (28.0-32.0); MEAN CORPUSCULAR HGB CONC 33.2 g/dL (31.0-37.0); MEAN CORPUSCULAR VOLUME 93.6 fL (80.0-94.0); MEAN PLATELET VOLUME 10.9 fl (7.4-10.4); PLATELET 217 x1000/uL (130-400); RED BLOOD CELL COUNT 3.64 mill/uL (4.7-6.1); RED CELL DISTRIBUTION WIDTH 16.4 % (11.6-14.6)
[2024-03-24 07:23] LABS: DIFFERENTIAL COMMENT 1
[2024-03-24 08:01] LABS: CARBON DIOXIDE 15 mEq/L (21-32); CHLORIDE 93 mEq/L (98-107); POTASSIUM 4.9 mEq/L (3.5-5.1); SODIUM 130 mEq/L (136-145)
[2024-03-24 08:02] LABS: CALCIUM 8.5 mg/dL (8.7-10.4)
[2024-03-24 08:06] LABS: PLATELET ESTIMATE NORMAL
[2024-03-24 08:07] LABS: ANISOCYTOSIS 1+; GLUCOSE 286 mg/dL (70-105)
[2024-03-24 08:08] LABS: ALANINE AMINOTRANSFERASE 16 IU/L (10-49); ALBUMIN 3.2 g/dL (3.2-4.8); AMYLASE 35 IU/L (30-118); ASPARTATE AMINOTRANSFERASE 48 IU/L (<34); PROTEIN TOTAL 5.7 g/dL (6.0-8.3)
[2024-03-24 08:09] LABS: BILIRUBIN DIRECT 0.3 mg/dL (<=3.0); BILIRUBIN TOTAL 0.5 mg/dL (0.1-1.0); CREATINE KINASE 282 IU/L (46-171)
[2024-03-24 09:02] LABS: CREATININE 10.5 mg/dL (0.6-1.3); UREA NITROGEN BLOOD 111 mg/dL (9-23)
[2024-03-24 09:58] LABS: BG BASE EXCESS -8.9 mmol/L (-2.0-3.0); BG CARBOXYHEMOGLOBIN 0.8 % (0.5-1.5); BG DEOXYHEMOGLOBIN 3.4 % (0.0-5.0); BG FRACTION INSPIRED OXYGEN 40; BG METHEMOGLOBIN 0.2 % (0.5-1.5); BG OXYGEN SATURATION 96.6 % (94.0-98.0); BG OXYHEMOGLOBIN 95.6 % (94.0-98.0); BG PCO2 36.8 mmHg (35.0-48.0); BG PH 7.283 (7.350-7.450); BG SAMPLE SITE RIGHT BRACHIAL; BG TOTAL HEMOGLOBIN 12.7 g/dL (13.5-17.5); BG TOTAL RESPIRATORY RATE 29 b/min; BG VENT MODE VENT - P/C
[2024-03-24] MEDS: CLONIDINE 0.1MG TABLET PO PRN (21:03)
[2024-03-25] VITALS (87 sets, daily range): BP systolic 105–154; BP diastolic 66–103; PULSE 87–119; RESP 19–32; TEMP 37.39188–37.503; O2SAT 96–99
[2024-03-25] MEDS: IBUPROFEN 400MG TABLET PO NR (00:40)
[2024-03-25 06:40] LABS: CHLORIDE 93 mEq/L (98-107)
[2024-03-25 06:41] LABS: CARBON DIOXIDE 17 mEq/L (21-32); SODIUM 132 mEq/L (136-145)
[2024-03-25 06:42] LABS: CALCIUM 8.6 mg/dL (8.7-10.4)
[2024-03-25 06:46] LABS: GLUCOSE 348 mg/dL (70-105)
[2024-03-25 06:47] LABS: PROTEIN TOTAL 5.8 g/dL (6.0-8.3)
[2024-03-25 06:48] LABS: ALANINE AMINOTRANSFERASE 12 IU/L (10-49); AMYLASE 30 IU/L (30-118); ASPARTATE AMINOTRANSFERASE 44 IU/L (<34); LACTATE DEHYDROGENASE 682 IU/L (120-246)
[2024-03-25 06:49] LABS: BILIRUBIN DIRECT 0.3 mg/dL (<=3.0); BILIRUBIN TOTAL 0.5 mg/dL (0.1-1.0)
[2024-03-25 06:58] LABS: CREATININE 11.9 mg/dL (0.6-1.3); UREA NITROGEN BLOOD 148 mg/dL (9-23)
[2024-03-25 07:17] LABS: HEMATOCRIT. 33.8 % (42.0-52.0); MEAN CORPUSCULAR HEMOGLOBIN 30.2 pg (28.0-32.0); MEAN CORPUSCULAR HGB CONC 32.5 g/dL (31.0-37.0); MEAN CORPUSCULAR VOLUME 92.9 fL (80.0-94.0); MEAN PLATELET VOLUME 10.4 fl (7.4-10.4); PLATELET 247 x1000/uL (130-400); RED BLOOD CELL COUNT 3.63 mill/uL (4.7-6.1); WHITE BLOOD COUNT 21.9 x1000/uL (4.5-11.0)
[2024-03-25 08:08] LABS: DIFFERENTIAL COMMENT 1
[2024-03-25 10:53] LABS: BG BASE EXCESS -7.7 mmol/L (-2.0-3.0); BG DEOXYHEMOGLOBIN 2.7 % (0.0-5.0); BG FRACTION INSPIRED OXYGEN 40; BG HCO3 ACT 18.2 mmol/L (21.0-28.0); BG METHEMOGLOBIN 0.3 % (0.5-1.5); BG OXYGEN SATURATION 97.3 % (94.0-98.0); BG PCO2 38.7 mmHg (35.0-48.0); BG PH 7.291 (7.350-7.450); BG PO2 103.2 mmHg (83.0-108.0); BG SAMPLE SITE RIGHT RADIAL; BG TOTAL HEMOGLOBIN 11.6 g/dL (13.5-17.5); BG VENT MODE VENT - P/C
[2024-03-25] MEDS: ACETAMINOPHEN 1000MG/100ML 100 ML IV NR (17:56)
[2024-03-25 20:54] LABS: PLATELET ESTIMATE NORMAL
[2024-03-26] VITALS (62 sets, daily range): BP systolic 112–161; BP diastolic 87–109; PULSE 97–116; RESP 17–46; TEMP 37.1–38.2; O2SAT 95–100
[2024-03-26 05:25] LABS: HEMATOCRIT. 35.4 % (42.0-52.0); HEMOGLOBIN. 11.5 g/dL (14.0-18.0); MEAN CORPUSCULAR HEMOGLOBIN 30.4 pg (28.0-32.0); MEAN CORPUSCULAR HGB CONC 32.6 g/dL (31.0-37.0); MEAN CORPUSCULAR VOLUME 93.4 fL (80.0-94.0); MEAN PLATELET VOLUME 10.9 fl (7.4-10.4); PLATELET 306 x1000/uL (130-400); RED BLOOD CELL COUNT 3.79 mill/uL (4.7-6.1); RED CELL DISTRIBUTION WIDTH 16.3 % (11.6-14.6); WHITE BLOOD COUNT 23.7 x1000/uL (4.5-11.0)
[2024-03-26 05:32] LABS: DIFFERENTIAL COMMENT 1
[2024-03-26 06:00] LABS: POTASSIUM 5.2 mEq/L (3.5-5.1)
[2024-03-26 06:35] LABS: CREATININE 11.1 mg/dL (0.6-1.3)
[2024-03-26 11:57] LABS: BG BASE EXCESS -8.1 mmol/L (-2.0-3.0); BG DEOXYHEMOGLOBIN 3.3 % (0.0-5.0); BG FRACTION INSPIRED OXYGEN 40; BG HCO3 ACT 16.3 mmol/L (21.0-28.0); BG METHEMOGLOBIN 0.3 % (0.5-1.5); BG OXYGEN SATURATION 96.7 % (94.0-98.0); BG OXYHEMOGLOBIN 96.4 % (94.0-98.0); BG PCO2 30.4 mmHg (35.0-48.0); BG PH 7.348 (7.350-7.450); BG PO2 95.9 mmHg (83.0-108.0); BG SAMPLE SITE RIGHT RADIAL; BG TOTAL HEMOGLOBIN 12.3 g/dL (13.5-17.5); BG VENT MODE VENT - AC/PC
[2024-03-26] MEDS: MEROPENEM 500 MG in SODIUM CHLORIDE 0.9% 100 ML IV SCH (20:27)
[2024-03-26 21:43] LABS: PLATELET ESTIMATE NORMAL
[2024-03-27] VITALS (48 sets, daily range): BP systolic 113–161; BP diastolic 85–118; PULSE 88–121; RESP 15–27; TEMP 37.28076–37.89192; O2SAT 96–100
[2024-03-27] MEDS: ACETAMINOPHEN 650MG SUPP PR PRN (02:24)
[2024-03-27 06:53] LABS: CHLORIDE 94 mEq/L (98-107); HEMATOCRIT. 34.7 % (42.0-52.0); HEMOGLOBIN. 11.3 g/dL (14.0-18.0); MEAN CORPUSCULAR HEMOGLOBIN 30.3 pg (28.0-32.0); MEAN CORPUSCULAR HGB CONC 32.4 g/dL (31.0-37.0); MEAN CORPUSCULAR VOLUME 93.6 fL (80.0-94.0); MEAN PLATELET VOLUME 10.7 fl (7.4-10.4); PLATELET 312 x1000/uL (130-400); POTASSIUM 5.4 mEq/L (3.5-5.1); RED BLOOD CELL COUNT 3.71 mill/uL (4.7-6.1); RED CELL DISTRIBUTION WIDTH 16.2 % (11.6-14.6); SODIUM 136 mEq/L (136-145); WHITE BLOOD COUNT 22.4 x1000/uL (4.5-11.0)
[2024-03-27 06:54] LABS: CARBON DIOXIDE 19 mEq/L (21-32)
[2024-03-27 06:59] LABS: GLUCOSE 285 mg/dL (70-105)
[2024-03-27 07:00] LABS: DIFFERENTIAL COMMENT 1
[2024-03-27 07:27] LABS: CREATININE 12.3 mg/dL (0.6-1.3); UREA NITROGEN BLOOD 171 mg/dL (9-23)
[2024-03-27 07:31] LABS: PHOSPHORUS 14.2 mg/dL (2.5-4.9)
[2024-03-27] MEDS: LANTHANUM CARBONATE 500MG CHEW TABLET PO SCH (08:55)
[2024-03-27] MEDS: IPRATROPIUM BROMIDE (0.02%) 0.5MG/2.5ML NEB HHN SCH (08:57)
[2024-03-27] MEDS: BLOOD SUGAR DIAGNOSTIC STRIP TEST SCH (11:40)
[2024-03-27 13:42] LABS: BG BASE EXCESS -4.7 mmol/L (-2.0-3.0); BG CARBOXYHEMOGLOBIN 0.4 % (0.5-1.5); BG DEOXYHEMOGLOBIN 3.2 % (0.0-5.0); BG FRACTION INSPIRED OXYGEN 40; BG METHEMOGLOBIN 0.3 % (0.5-1.5); BG OXYGEN SATURATION 96.8 % (94.0-98.0); BG OXYHEMOGLOBIN 96.1 % (94.0-98.0); BG PCO2 31.9 mmHg (35.0-48.0); BG PH 7.393 (7.350-7.450); BG PO2 90.5 mmHg (83.0-108.0); BG SAMPLE SITE RIGHT RADIAL; BG TOTAL HEMOGLOBIN 14.9 g/dL (13.5-17.5); BG VENT MODE VENT - P/C
[2024-03-27] MEDS ORDERED: MEROPENEM 500 MG in SODIUM CHLORIDE 0.9% 100 ML IV SCH (15:00)
[2024-03-27 15:51] LABS: PLATELET ESTIMATE NORMAL
[2024-03-27] MEDS ORDERED: METOCLOPRAMIDE HCL 10MG/2ML VIAL IV SCH (16:00)
[2024-03-27] MEDS: MEROPENEM 500 MG in DEXTROSE 5% WATER 50 ML IV SCH (19:02)
[2024-03-27] MEDS: METOCLOPRAMIDE HCL 10MG/2ML VIAL IV SCH (19:03)
[2024-03-27] MEDS: ACETAMINOPHEN 1000MG/100ML 100 ML IV PRN (23:35)
[2024-03-28] VITALS (74 sets, daily range): BP systolic 101–155; BP diastolic 71–112; PULSE 102–129; RESP 16–31; TEMP 37.7–38.3364; O2SAT 93–100
[2024-03-28 05:01] LABS: HEMATOCRIT. 33.9 % (42.0-52.0); HEMOGLOBIN. 11.1 g/dL (14.0-18.0); MEAN CORPUSCULAR HEMOGLOBIN 30.2 pg (28.0-32.0); MEAN CORPUSCULAR HGB CONC 32.8 g/dL (31.0-37.0); MEAN PLATELET VOLUME 10.6 fl (7.4-10.4); PLATELET 326 x1000/uL (130-400); RED BLOOD CELL COUNT 3.68 mill/uL (4.7-6.1); RED CELL DISTRIBUTION WIDTH 15.8 % (11.6-14.6); WHITE BLOOD COUNT 20.8 x1000/uL (4.5-11.0)
[2024-03-28 05:11] LABS: DIFFERENTIAL COMMENT 1
[2024-03-28 05:19] LABS: POTASSIUM 5.6 mEq/L (3.5-5.1)
[2024-03-28 05:20] LABS: CALCIUM 8.5 mg/dL (8.7-10.4)
[2024-03-28 05:54] LABS: CREATININE 11.3 mg/dL (0.6-1.3)
[2024-03-28 16:52] LABS: PLATELET ESTIMATE NORMAL
[2024-03-29] VITALS (72 sets, daily range): BP systolic 98–183; BP diastolic 62–169; PULSE 78–130; RESP 13–46; TEMP 37.2252; O2SAT 93–100
[2024-03-29 06:02] LABS: HEMATOCRIT. 34.6 % (42.0-52.0); HEMOGLOBIN. 11.1 g/dL (14.0-18.0); MEAN CORPUSCULAR HEMOGLOBIN 29.8 pg (28.0-32.0); MEAN CORPUSCULAR HGB CONC 32.1 g/dL (31.0-37.0); MEAN CORPUSCULAR VOLUME 92.9 fL (80.0-94.0); MEAN PLATELET VOLUME 10.3 fl (7.4-10.4); PLATELET 352 x1000/uL (130-400); POTASSIUM 6.1 mEq/L (3.5-5.1); RED BLOOD CELL COUNT 3.73 mill/uL (4.7-6.1); RED CELL DISTRIBUTION WIDTH 15.7 % (11.6-14.6); WHITE BLOOD COUNT 15.3 x1000/uL (4.5-11.0)
[2024-03-29 06:03] LABS: CALCIUM 8.5 mg/dL (8.7-10.4)
[2024-03-29 06:27] LABS: CREATININE 10.5 mg/dL (0.6-1.3)
[2024-03-29] MEDS: CALCIUM CHLORIDE 1GM/10ML SYR IV NR (07:14)
[2024-03-29] MEDS: DEXTROSE 50% WATER 50ML SYRINGE IV NR (07:15)
[2024-03-29] MEDS: SODIUM BICARBONATE 8.4% 50MEQ/50ML SYR IV NR (07:15)
[2024-03-29] MEDS: INSULIN REGULAR (HUMULIN R) 1000UNITS/10ML VIAL IV NR (07:16)
[2024-03-29] MEDS ORDERED: LIDOCAINE HCL/EPINEPHRINE 1%-EPI 1:100,000 20ML VIAL ONE (07:21)
[2024-03-29 07:25] LABS: DIFFERENTIAL COMMENT 1
[2024-03-29] MEDS: ALBUTEROL (0.083%) 2.5MG/3ML NEB HHN NR (08:11)
[2024-03-29] MEDS: INSULIN GLARGINE 100 UNITS/ML SUBCUT SCH (08:55)
[2024-03-29] MEDS: SODIUM ZIRCONIUM CYCLOSILICATE 10GM/PACKET PO NR (08:56)
[2024-03-29] MEDS: INSULIN LISPRO 100 UNITS/ML SUBCUT NR ×2 (09:06→12:39)
[2024-03-29 10:38] LABS: HEMOGLOBIN. 11.3 g/dL (14.0-18.0); MEAN CORPUSCULAR HEMOGLOBIN 30.1 pg (28.0-32.0); MEAN CORPUSCULAR HGB CONC 32.3 g/dL (31.0-37.0); MEAN CORPUSCULAR VOLUME 93.2 fL (80.0-94.0); MEAN PLATELET VOLUME 10.4 fl (7.4-10.4); PLATELET 310 x1000/uL (130-400); RED BLOOD CELL COUNT 3.75 mill/uL (4.7-6.1); RED CELL DISTRIBUTION WIDTH 15.8 % (11.6-14.6)
[2024-03-29 10:42] LABS: POTASSIUM 5.8 mEq/L (3.5-5.1)
[2024-03-29 10:46] LABS: BG BASE EXCESS -6.5 mmol/L (-2.0-3.0); BG CARBOXYHEMOGLOBIN 0.4 % (0.5-1.5); BG DEOXYHEMOGLOBIN 2.7 % (0.0-5.0); BG FRACTION INSPIRED OXYGEN 30; BG HCO3 ACT 18.4 mmol/L (21.0-28.0); BG METHEMOGLOBIN 0.1 % (0.5-1.5); BG OXYGEN SATURATION 97.3 % (94.0-98.0); BG OXYHEMOGLOBIN 96.8 % (94.0-98.0); BG PCO2 34.5 mmHg (35.0-48.0); BG PH 7.345 (7.350-7.450); BG PO2 104.2 mmHg (83.0-108.0); BG SAMPLE SITE RIGHT RADIAL; BG TOTAL HEMOGLOBIN 11.1 g/dL (13.5-17.5); BG TOTAL RESPIRATORY RATE 21 b/min; BG VENT MODE VENT - P/C
[2024-03-29 11:02] LABS: DIFFERENTIAL COMMENT 1
[2024-03-29 11:19] LABS: CREATININE 10.8 mg/dL (0.6-1.3)
[2024-03-29] MEDS ORDERED: DEXTROSE 50% WATER 50ML SYRINGE IV PRN (15:15)
[2024-03-29] MEDS ORDERED: BLOOD SUGAR DIAGNOSTIC STRIP TEST PRN (15:15)
[2024-03-29] MEDS: QUETIAPINE FUMARATE 25MG TABLET PO NR (16:07)
[2024-03-29] MEDS: DEXT 5%/0.9% NACL 1,000 ML IV SCH ×2 (16:07→23:57)
[2024-03-29 16:39] LABS: BG CARBOXYHEMOGLOBIN 0.3 % (0.5-1.5); BG DEOXYHEMOGLOBIN 2.1 % (0.0-5.0); BG FRACTION INSPIRED OXYGEN 30; BG HCO3 ACT 20.9 mmol/L (21.0-28.0); BG METHEMOGLOBIN 0.3 % (0.5-1.5); BG OXYGEN SATURATION 97.9 % (94.0-98.0); BG OXYHEMOGLOBIN 97.3 % (94.0-98.0); BG PCO2 30.4 mmHg (35.0-48.0); BG PH 7.456 (7.350-7.450); BG PO2 100.4 mmHg (83.0-108.0); BG SAMPLE SITE RIGHT RADIAL; BG TOTAL HEMOGLOBIN 12.7 g/dL (13.5-17.5); BG TOTAL RESPIRATORY RATE 20 b/min; BG VENT MODE VENT - P/C
[2024-03-29] MEDS: BLOOD SUGAR DIAGNOSTIC STRIP TEST SCH (18:40)
[2024-03-29] MEDS: SODIUM CHLORIDE 0.9% 1,000 ML IV SCH (18:44)
[2024-03-29 18:59] LABS: POTASSIUM 5.1 mEq/L (3.5-5.1)
[2024-03-29] MEDS: INSULIN REGULAR 100U/100ML PMX 100 ML IV SCH (19:02)
[2024-03-29 19:07] LABS: LACTIC ACID 2.5 mmol/L (0.4-2.0)
[2024-03-29] MEDS: DEXMEDETOMIDINE 400 MCG/100 ML 100 ML IV PRN (20:14)
[2024-03-29] MEDS: RIFAXIMIN 550 MG TABLET PO SCH (21:44)
[2024-03-29 23:03] LABS: CHLORIDE 99 mEq/L (98-107); POTASSIUM 4.7 mEq/L (3.5-5.1); SODIUM 138 mEq/L (136-145)
[2024-03-29 23:04] LABS: CARBON DIOXIDE 23 mEq/L (21-32)
[2024-03-29 23:05] LABS: CALCIUM 8.5 mg/dL (8.7-10.4)
[2024-03-29 23:16] LABS: GLUCOSE 243 mg/dL (70-105)
[2024-03-29 23:17] LABS: CREATININE 8.6 mg/dL (0.6-1.3); PHOSPHORUS 12.4 mg/dL (2.5-4.9); UREA NITROGEN BLOOD 116 mg/dL (9-23)
[2024-03-30] VITALS (54 sets, daily range): BP systolic 98–146; BP diastolic 66–120; PULSE 78–115; RESP 13–29; TEMP 98.6–101.5; O2SAT 95–100
[2024-03-30 05:22] LABS: AMMONIA < 17 uMol/L (<32)
[2024-03-30 05:39] LABS: HEMATOCRIT. 32.5 % (42.0-52.0); HEMOGLOBIN. 10.4 g/dL (14.0-18.0); MEAN CORPUSCULAR HEMOGLOBIN 29.9 pg (28.0-32.0); MEAN CORPUSCULAR HGB CONC 32.1 g/dL (31.0-37.0); MEAN CORPUSCULAR VOLUME 93.1 fL (80.0-94.0); MEAN PLATELET VOLUME 9.8 fl (7.4-10.4); PLATELET 291 x1000/uL (130-400); RED BLOOD CELL COUNT 3.49 mill/uL (4.7-6.1); RED CELL DISTRIBUTION WIDTH 15.8 % (11.6-14.6); WHITE BLOOD COUNT 15.2 x1000/uL (4.5-11.0)
[2024-03-30 05:49] LABS: CHLORIDE 101 mEq/L (98-107); POTASSIUM 4.5 mEq/L (3.5-5.1); SODIUM 139 mEq/L (136-145)
[2024-03-30 05:51] LABS: CALCIUM 8.3 mg/dL (8.7-10.4); CARBON DIOXIDE 21 mEq/L (21-32)
[2024-03-30 05:56] LABS: GLUCOSE 153 mg/dL (70-105)
[2024-03-30 05:57] LABS: ALANINE AMINOTRANSFERASE 9 IU/L (10-49); ALBUMIN 2.9 g/dL (3.2-4.8); ASPARTATE AMINOTRANSFERASE 47 IU/L (<34); PROTEIN TOTAL 5.6 g/dL (6.0-8.3)
[2024-03-30 05:58] LABS: BILIRUBIN DIRECT 0.3 mg/dL (<=3.0)
[2024-03-30 05:59] LABS: BILIRUBIN TOTAL 0.5 mg/dL (0.1-1.0)
[2024-03-30 06:35] LABS: PROTHROMBIN TIME 11.4 sec (9.6-11.0)
[2024-03-30 06:59] LABS: CREATININE 8.4 mg/dL (0.6-1.3); PHOSPHORUS 12.8 mg/dL (2.5-4.9); UREA NITROGEN BLOOD 120 mg/dL (9-23)
[2024-03-30 08:03] LABS: DIFFERENTIAL COMMENT 1
[2024-03-30] MEDS: DEXT 5%/0.9% NACL 1,000 ML IV SCH (10:25)
[2024-03-30 14:34] LABS: PLATELET ESTIMATE NORMAL
[2024-03-30 17:16] LABS: PLATELET ESTIMATE NORMAL
[2024-03-30 18:40] LABS: PLATELET ESTIMATE NORMAL
[2024-03-30 20:40] LABS: POTASSIUM 4.6 mEq/L (3.5-5.1)
[2024-03-30 20:41] LABS: CALCIUM 8.1 mg/dL (8.7-10.4)
[2024-03-30 20:52] LABS: CREATININE 8.4 mg/dL (0.6-1.3)
[2024-03-31] VITALS (82 sets, daily range): BP systolic 65–155; BP diastolic 41–103; PULSE 79–150; RESP 13–42; TEMP 38.4–39.2; O2SAT 95–100
[2024-03-31 05:48] LABS: HEMATOCRIT. 31.6 % (42.0-52.0); HEMOGLOBIN. 10.4 g/dL (14.0-18.0); MEAN CORPUSCULAR HEMOGLOBIN 30.7 pg (28.0-32.0); MEAN CORPUSCULAR HGB CONC 32.9 g/dL (31.0-37.0); MEAN CORPUSCULAR VOLUME 93.4 fL (80.0-94.0); MEAN PLATELET VOLUME 9.6 fl (7.4-10.4); PLATELET 286 x1000/uL (130-400); RED BLOOD CELL COUNT 3.39 mill/uL (4.7-6.1); RED CELL DISTRIBUTION WIDTH 16.3 % (11.6-14.6); WHITE BLOOD COUNT 14.3 x1000/uL (4.5-11.0)
[2024-03-31 06:26] LABS: POTASSIUM 4.2 mEq/L (3.5-5.1)
[2024-03-31 06:28] LABS: CALCIUM 8.1 mg/dL (8.7-10.4)
[2024-03-31 07:24] LABS: CREATININE 8.1 mg/dL (0.6-1.3)
[2024-03-31 07:45] LABS: DIFFERENTIAL COMMENT 1
[2024-03-31 07:59] LABS: PHOSPHORUS 12.8 mg/dL (2.5-4.9)
[2024-03-31 09:46] LABS: BG BASE EXCESS -5.8 mmol/L (-2.0-3.0); BG CARBOXYHEMOGLOBIN 0.1 % (0.5-1.5); BG DEOXYHEMOGLOBIN 1.5 % (0.0-5.0); BG FRACTION INSPIRED OXYGEN 30; BG HCO3 ACT 19.1 mmol/L (21.0-28.0); BG METHEMOGLOBIN 0.3 % (0.5-1.5); BG OXYGEN SATURATION 98.5 % (94.0-98.0); BG OXYHEMOGLOBIN 98.1 % (94.0-98.0); BG PCO2 35.3 mmHg (35.0-48.0); BG PH 7.351 (7.350-7.450); BG PO2 124.1 mmHg (83.0-108.0); BG SAMPLE SITE RIGHT RADIAL; BG TOTAL HEMOGLOBIN 10.9 g/dL (13.5-17.5); BG VENT MODE VENT - P/C
[2024-03-31] MEDS: CALCIUM ACETATE 667MG CAPSULE PO SCH (12:28)
[2024-03-31 13:04] LABS: ANISOCYTOSIS 1+; PLATELET ESTIMATE NORMAL
[2024-03-31] MEDS: PROPOFOL 10MG/ML 100ML 100 ML IV PRN (13:19)
[2024-03-31] MEDS: ACETAMINOPHEN 1000MG/100ML 100 ML IV NR (13:19)
[2024-03-31] MEDS ORDERED: LACTATED RINGERS 1,000 ML IV NR (14:43)
[2024-03-31] MEDS: MIDAZOLAM 100MG/100ML PMX 100 ML IV PRN (15:00)
[2024-03-31] MEDS: FENTANYL CITRATE/PF 1,000 MCG in DEXT 5% WATER 80 ML IV PRN (15:40)
[2024-03-31 19:11] LABS: CARBON DIOXIDE 16 mEq/L (21-32); CHLORIDE 103 mEq/L (98-107); POTASSIUM 5.4 mEq/L (3.5-5.1); SODIUM 140 mEq/L (136-145)
[2024-03-31 19:12] LABS: CALCIUM 8.2 mg/dL (8.7-10.4)
[2024-03-31 19:16] LABS: GLUCOSE 303 mg/dL (70-105)
[2024-03-31 19:18] LABS: ALANINE AMINOTRANSFERASE 10 IU/L (10-49); ALBUMIN 2.8 g/dL (3.2-4.8); ASPARTATE AMINOTRANSFERASE 43 IU/L (<34)
[2024-03-31 19:19] LABS: BILIRUBIN TOTAL 0.7 mg/dL (0.1-1.0); PROTEIN TOTAL 5.6 g/dL (6.0-8.3)
[2024-03-31 20:37] LABS: PHOSPHORUS 13.9 mg/dL (2.5-4.9)
[2024-03-31 20:38] LABS: CREATININE 8.3 mg/dL (0.6-1.3); UREA NITROGEN BLOOD 148 mg/dL (9-23)
[2024-03-31] MEDS: PHENYLEPHRINE 100 MG in SODIUM CHLORIDE 0.9% 240 ML IV PRN (21:34)
[2024-04-01] VITALS (105 sets, daily range): BP systolic 84–135; BP diastolic 41–97; PULSE 87–119; RESP 15–30; TEMP 36.7–39.4; O2SAT 100
[2024-04-01] MEDS: ACETAMINOPHEN 1000MG/100ML 100 ML IV NR (04:16)
[2024-04-01 05:50] LABS: HEMATOCRIT. 30.9 % (42.0-52.0); HEMOGLOBIN. 9.8 g/dL (14.0-18.0); MEAN CORPUSCULAR HEMOGLOBIN 29.8 pg (28.0-32.0); MEAN CORPUSCULAR HGB CONC 31.8 g/dL (31.0-37.0); MEAN CORPUSCULAR VOLUME 93.9 fL (80.0-94.0); MEAN PLATELET VOLUME 9.8 fl (7.4-10.4); PLATELET 438 x1000/uL (130-400); RED BLOOD CELL COUNT 3.29 mill/uL (4.7-6.1); RED CELL DISTRIBUTION WIDTH 16.2 % (11.6-14.6); WHITE BLOOD COUNT 30.4 x1000/uL (4.5-11.0)
[2024-04-01 06:05] LABS: CARBON DIOXIDE 23 mEq/L (21-32); CHLORIDE 104 mEq/L (98-107); SODIUM 142 mEq/L (136-145)
[2024-04-01 06:06] LABS: CALCIUM 8.5 mg/dL (8.7-10.4)
[2024-04-01 06:11] LABS: GLUCOSE 208 mg/dL (70-105); TRIGLYCERIDE 194 mg/dL (0-150)
[2024-04-01 06:13] LABS: CREATININE 7.2 mg/dL (0.6-1.3); UREA NITROGEN BLOOD 125 mg/dL (9-23)
[2024-04-01] MEDS ORDERED: LIDOCAINE HCL/EPINEPHRINE 1%-EPI 1:100,000 20ML VIAL ONE (07:19)
[2024-04-01 07:59] LABS: PHOSPHORUS 12.9 mg/dL (2.5-4.9)
[2024-04-01 08:04] LABS: DIFFERENTIAL COMMENT 1
[2024-04-01 11:11] LABS: ANISOCYTOSIS 1+; PLATELET ESTIMATE SLIGHTLY INCREASED
[2024-04-01] MEDS: SODIUM CHLORIDE 0.45% 1,000 ML IV SCH (15:23)
[2024-04-01] MEDS: VANCOMYCIN 1G PREMIX 200 ML IV SCH ×2 (15:41→21:50)
[2024-04-01] MEDS ORDERED: BLOOD SUGAR DIAGNOSTIC STRIP TEST PRN (17:30)
[2024-04-01] MEDS ORDERED: DEXTROSE 50% WATER 50ML SYRINGE IV PRN (17:30)
[2024-04-01] MEDS ORDERED: INSULIN REGULAR 100U/100ML PMX 100 ML IV PRN (17:30)
[2024-04-01] MEDS: BLOOD SUGAR DIAGNOSTIC STRIP TEST SCH (17:33)
[2024-04-01] MEDS: MEROPENEM 500 MG in SODIUM CHLORIDE 0.9% 50 ML IV SCH (17:48)
[2024-04-01] MEDS: MICAFUNGIN 100 MG in SODIUM CHLORIDE 0.9% 100 ML IV SCH (17:48)
[2024-04-02] VITALS (92 sets, daily range): BP systolic 109–163; BP diastolic 73–117; PULSE 103–129; RESP 15–28; TEMP 36.7–38.3; O2SAT 92–100
[2024-04-02] MEDS: DEXT 5%/0.45% NACL 1000ML 1,000 ML IV SCH (00:22)
[2024-04-02] MEDS: INSULIN REGULAR 100U/100ML PMX 100 ML IV PRN (01:39)
[2024-04-02 05:01] LABS: HEMOGLOBIN. 8.3 g/dL (14.0-18.0); MEAN CORPUSCULAR HEMOGLOBIN 29.7 pg (28.0-32.0); MEAN CORPUSCULAR HGB CONC 31.8 g/dL (31.0-37.0); MEAN CORPUSCULAR VOLUME 93.3 fL (80.0-94.0); MEAN PLATELET VOLUME 9.5 fl (7.4-10.4); PLATELET 304 x1000/uL (130-400); RED BLOOD CELL COUNT 2.78 mill/uL (4.7-6.1); RED CELL DISTRIBUTION WIDTH 16.1 % (11.6-14.6); WHITE BLOOD COUNT 18.4 x1000/uL (4.5-11.0)
[2024-04-02 05:05] LABS: CALCIUM 8.5 mg/dL (8.7-10.4)
[2024-04-02 05:42] LABS: CREATININE 6.5 mg/dL (0.6-1.3)
[2024-04-02 06:45] LABS: DIFFERENTIAL COMMENT 1
[2024-04-02] MEDS ORDERED: DEXTROSE 50% WATER 50ML SYRINGE IV PRN (06:45)
[2024-04-02] MEDS: INSULIN GLARGINE 100 UNITS/ML SUBCUT NR (06:49)
[2024-04-02] MEDS: BLOOD SUGAR DIAGNOSTIC STRIP TEST SCH (08:44)
[2024-04-02] MEDS: INSULIN LISPRO 100 UNITS/ML SUBCUT SCH (08:51)
[2024-04-02 09:12] LABS: BG BASE EXCESS -2.5 mmol/L (-2.0-3.0); BG CARBOXYHEMOGLOBIN 0.6 % (0.5-1.5); BG DEOXYHEMOGLOBIN 2.1 % (0.0-5.0); BG FRACTION INSPIRED OXYGEN 50; BG HCO3 ACT 21.7 mmol/L (21.0-28.0); BG METHEMOGLOBIN 0.3 % (0.5-1.5); BG OXYGEN SATURATION 97.9 % (94.0-98.0); BG PCO2 34.6 mmHg (35.0-48.0); BG PH 7.416 (7.350-7.450); BG SAMPLE SITE RIGHT RADIAL; BG TOTAL HEMOGLOBIN 7.4 g/dL (13.5-17.5); BG VENT MODE VENT - AC
[2024-04-02] MEDS ORDERED: LIDOCAINE HCL/EPINEPHRINE 1%-EPI 1:100,000 20ML VIAL ONE (12:02)
[2024-04-02] MEDS ORDERED: ROCURONIUM BROMIDE 10MG/ML VIAL 5ML IV ONE ×2 (13:45→14:18)
[2024-04-02] MEDS ORDERED: HYDROMORPHONE HCL/PF 1MG/ML INJ ONE (14:01)
[2024-04-02] MEDS ORDERED: MEROPENEM 500 MG in SODIUM CHLORIDE 0.9% 100 ML IV SCH (14:45)
[2024-04-02] MEDS: MEROPENEM 500 MG in SODIUM CHLORIDE 0.9% 100 ML IV SCH (17:56)
[2024-04-02 18:30] LABS: PLATELET ESTIMATE NORMAL
[2024-04-02] MEDS: INSULIN GLARGINE 100 UNITS/ML SUBCUT SCH (22:55)
[2024-04-03] VITALS (104 sets, daily range): BP systolic 94–158; BP diastolic 40–105; PULSE 101–125; RESP 15–28; TEMP 36.6696–38.3; O2SAT 93–100
[2024-04-03] MEDS: INSULIN LISPRO 100 UNITS/ML SUBCUT SCH (02:04)
[2024-04-03 05:07] LABS: HEMATOCRIT. 22.7 % (42.0-52.0); HEMOGLOBIN. 7.1 g/dL (14.0-18.0); MEAN CORPUSCULAR HEMOGLOBIN 28.9 pg (28.0-32.0); MEAN CORPUSCULAR HGB CONC 31.1 g/dL (31.0-37.0); MEAN CORPUSCULAR VOLUME 92.8 fL (80.0-94.0); MEAN PLATELET VOLUME 9.7 fl (7.4-10.4); PLATELET 318 x1000/uL (130-400); RED BLOOD CELL COUNT 2.45 mill/uL (4.7-6.1); RED CELL DISTRIBUTION WIDTH 15.8 % (11.6-14.6); WHITE BLOOD COUNT 11.8 x1000/uL (4.5-11.0)
[2024-04-03 05:31] LABS: CALCIUM 8.5 mg/dL (8.7-10.4); CARBON DIOXIDE 25 mEq/L (21-32); CHLORIDE 108 mEq/L (98-107); DIFFERENTIAL COMMENT 1; POTASSIUM 4.9 mEq/L (3.5-5.1); SODIUM 147 mEq/L (136-145)
[2024-04-03 05:36] LABS: IRON 20 ug/dL (65-175)
[2024-04-03 05:37] LABS: GLUCOSE 252 mg/dL (70-105)
[2024-04-03 05:39] LABS: TOTAL IRON BINDING CAPACITY 616 ug/dl (250-425)
[2024-04-03 05:41] LABS: FERRITIN 1635 ng/mL (22-322); FOLIC ACID (FOLATE) SERUM 6.67 ng/mL (>5.38)
[2024-04-03 05:42] LABS: VITAMIN B12 SERUM 1211 pg/mL (211-911)
[2024-04-03 05:56] LABS: CREATININE 5.8 mg/dL (0.6-1.3); UREA NITROGEN BLOOD 143 mg/dL (9-23)
[2024-04-03 08:31] LABS: BG BASE EXCESS -1.8 mmol/L (-2.0-3.0); BG CARBOXYHEMOGLOBIN 0.3 % (0.5-1.5); BG DEOXYHEMOGLOBIN 0.3 % (0.0-5.0); BG FRACTION INSPIRED OXYGEN 100; BG HCO3 ACT 22.2 mmol/L (21.0-28.0); BG METHEMOGLOBIN 0.1 % (0.5-1.5); BG OXYGEN SATURATION 99.7 % (94.0-98.0); BG OXYHEMOGLOBIN 99.3 % (94.0-98.0); BG PCO2 34.2 mmHg (35.0-48.0); BG PH 7.431 (7.350-7.450); BG PO2 246.6 mmHg (83.0-108.0); BG SAMPLE SITE RIGHT RADIAL; BG TOTAL HEMOGLOBIN 7.6 g/dL (13.5-17.5); BG VENT MODE VENT - AC
[2024-04-03] MEDS ORDERED: NON FORMULARY MED INJ SCH (11:00)
[2024-04-03] MEDS: IRON SUCROSE COMPLEX 100 MG/5 ML ML IV SCH (13:41)
[2024-04-03 15:50] LABS: PLATELET ESTIMATE NORMAL
[2024-04-03] MEDS: LACTULOSE 20G/30ML UDC PO PRN (17:12)
[2024-04-04] VITALS (57 sets, daily range): BP systolic 129–164; BP diastolic 76–104; PULSE 100–126; RESP 15–29; TEMP 37.2–38; O2SAT 94–100
[2024-04-04] MEDS: BLOOD SUGAR DIAGNOSTIC STRIP TEST SCH (00:11)
[2024-04-04] MEDS: INSULIN LISPRO 100 UNITS/ML SUBCUT SCH (00:13)
[2024-04-04 06:10] LABS: HEMATOCRIT. 26.4 % (42.0-52.0); HEMOGLOBIN. 8.6 g/dL (14.0-18.0); MEAN CORPUSCULAR HEMOGLOBIN 30.3 pg (28.0-32.0); MEAN CORPUSCULAR HGB CONC 32.5 g/dL (31.0-37.0); MEAN CORPUSCULAR VOLUME 93.1 fL (80.0-94.0); MEAN PLATELET VOLUME 9.1 fl (7.4-10.4); PLATELET 288 x1000/uL (130-400); RED BLOOD CELL COUNT 2.84 mill/uL (4.7-6.1); RED CELL DISTRIBUTION WIDTH 16.2 % (11.6-14.6); WHITE BLOOD COUNT 11.5 x1000/uL (4.5-11.0)
[2024-04-04 06:31] LABS: POTASSIUM 4.2 mEq/L (3.5-5.1)
[2024-04-04 06:32] LABS: CALCIUM 8.1 mg/dL (8.7-10.4)
[2024-04-04 06:37] LABS: CREATININE 4.5 mg/dL (0.6-1.3)
[2024-04-04 06:40] LABS: DIFFERENTIAL COMMENT 1
[2024-04-04 09:19] LABS: ANISOCYTOSIS 1+; PLATELET ESTIMATE NORMAL
[2024-04-05] VITALS (52 sets, daily range): BP systolic 91–155; BP diastolic 49–104; PULSE 105–129; RESP 16–34; TEMP 37.2–38.2; O2SAT 96–100
[2024-04-05 05:50] LABS: HEMATOCRIT. 25.6 % (42.0-52.0); HEMOGLOBIN. 8.3 g/dL (14.0-18.0); MEAN CORPUSCULAR HEMOGLOBIN 30.1 pg (28.0-32.0); MEAN CORPUSCULAR HGB CONC 32.4 g/dL (31.0-37.0); MEAN CORPUSCULAR VOLUME 92.8 fL (80.0-94.0); PLATELET 276 x1000/uL (130-400); RED BLOOD CELL COUNT 2.75 mill/uL (4.7-6.1); RED CELL DISTRIBUTION WIDTH 15.9 % (11.6-14.6); WHITE BLOOD COUNT 11.2 x1000/uL (4.5-11.0)
[2024-04-05 06:04] LABS: POTASSIUM 3.9 mEq/L (3.5-5.1)
[2024-04-05 06:05] LABS: CALCIUM 8.5 mg/dL (8.7-10.4)
[2024-04-05 06:10] LABS: CREATININE 4.2 mg/dL (0.6-1.3)
[2024-04-05 06:16] LABS: DIFFERENTIAL COMMENT 1
[2024-04-05] MEDS: MIDAZOLAM HCL 100 MG in SODIUM CHLORIDE 0.9% 100 ML IV PRN (13:30)
[2024-04-05] MEDS ORDERED: MORPHINE SULFATE 2 MG/ML INJ (NOT FOR IM USE) IV PRN (14:15)
[2024-04-05] MEDS ORDERED: HYDROCODONE/ACETAMINOPHEN 5/325MG TABLET PO PRN (14:45)
[2024-04-05] MEDS ORDERED: NALOXONE HCL 0.4MG/ML VIAL IV PRN (14:45)
[2024-04-05] MEDS ORDERED: VANCOMYCIN 1GM/200ML PMX (BAXTER) IV NR (15:00)
[2024-04-05] MEDS: MORPHINE SULFATE 2 MG/ML INJ (NOT FOR IM USE) IV PRN (16:03)
[2024-04-05] MEDS: LORAZEPAM 2MG/ML INJ IV PRN (16:24)
[2024-04-05] MEDS: INSULIN LISPRO 100 UNITS/ML SUBCUT SCH (17:32)
[2024-04-06] VITALS (64 sets, daily range): BP systolic 97–170; BP diastolic 72–132; PULSE 89–136; RESP 17–44; TEMP 36.9–38.7; O2SAT 94–100
[2024-04-06 05:46] LABS: HEMATOCRIT. 25.5 % (42.0-52.0); HEMOGLOBIN. 8.1 g/dL (14.0-18.0); MEAN CORPUSCULAR HEMOGLOBIN 29.6 pg (28.0-32.0); MEAN CORPUSCULAR VOLUME 92.7 fL (80.0-94.0); PLATELET 242 x1000/uL (130-400); RED BLOOD CELL COUNT 2.75 mill/uL (4.7-6.1); RED CELL DISTRIBUTION WIDTH 15.9 % (11.6-14.6); WHITE BLOOD COUNT 12.1 x1000/uL (4.5-11.0)
[2024-04-06 05:57] LABS: CHLORIDE 114 mEq/L (98-107); POTASSIUM 3.6 mEq/L (3.5-5.1)
[2024-04-06 05:58] LABS: CALCIUM 8.7 mg/dL (8.7-10.4); CARBON DIOXIDE 28 mEq/L (21-32)
[2024-04-06 06:03] LABS: CREATININE 4.3 mg/dL (0.6-1.3); GLUCOSE 157 mg/dL (70-105)
[2024-04-06 06:28] LABS: DIFFERENTIAL COMMENT 1
[2024-04-06 06:49] LABS: SODIUM 156 mEq/L (136-145); UREA NITROGEN BLOOD 145 mg/dL (9-23)
[2024-04-06] MEDS: DEXT 5% WATER 500 ML IV NR (08:46)
[2024-04-06] MEDS: PROPOFOL 10MG/ML 100ML 100 ML IV PRN (09:00)
[2024-04-06] MEDS: AMLODIPINE 5MG TABLET PO SCH (09:00)
[2024-04-06] MEDS ORDERED: MEROPENEM 500MG/50ML 50 ML IV SCH (10:00)
[2024-04-06 11:18] LABS: CLARITY URINE CLEAR (CLEAR); COLOR URINE YELLOW (YELLOW); GLUCOSE URINE NEGATIVE (NEGATIVE); KETONES URINE NEGATIVE (NEGATIVE); LEUKOCYTE ESTERASE URINE NEGATIVE (NEGATIVE); NITRITE URINE NEGATIVE (NEGATIVE); OCCULT BLOOD URINE 2+ (NEGATIVE); PROTEIN URINE 1+ (NEGATIVE); SPECIFIC GRAVITY URINE 1.014 (1.005-1.030); UROBILINOGEN URINE 0.2 E.U./dL (0.2-1.0)
[2024-04-06 11:24] LABS: SODIUM URINE RANDOM 42 mEq/L
[2024-04-06 11:36] LABS: SQUAMOUS EPITHELIAL CELL URINE RARE /lpf (RARE/1+)
[2024-04-06 11:37] LABS: BACTERIA URINE TRACE; RBC URINE 0-2 /hpf (0-2)
[2024-04-06 11:38] LABS: WBC URINE 0-2 /hpf (0-2)
[2024-04-06 11:39] LABS: AMORPHOUS SEDIMENT URINE 1+ /lpf
[2024-04-06] MEDS: MEROPENEM 500 MG in SODIUM CHLORIDE 0.9% 100 ML IV SCH (11:43)
[2024-04-06 12:22] LABS: PLATELET ESTIMATE NORMAL
[2024-04-06 12:48] LABS: OSMOLALITY URINE 392 mOsm/kg (500-850)
[2024-04-06 16:33] LABS: PLATELET ESTIMATE NORMAL
[2024-04-06 16:55] LABS: SODIUM 154 mEq/L (136-145)
[2024-04-06 17:01] LABS: TRIGLYCERIDE 219 mg/dL (0-150)
[2024-04-06] MEDS: RISPERIDONE 1MG TABLET NG SCH (21:36)
[2024-04-07] VITALS (52 sets, daily range): BP systolic 112–163; BP diastolic 71–96; PULSE 107–132; RESP 20–29; TEMP 37.1–39.4; O2SAT 97–100
[2024-04-07 05:49] LABS: HEMATOCRIT. 24.5 % (42.0-52.0); MEAN CORPUSCULAR HEMOGLOBIN 30.4 pg (28.0-32.0); MEAN CORPUSCULAR HGB CONC 32.8 g/dL (31.0-37.0); MEAN CORPUSCULAR VOLUME 92.9 fL (80.0-94.0); MEAN PLATELET VOLUME 9.7 fl (7.4-10.4); PLATELET 236 x1000/uL (130-400); RED BLOOD CELL COUNT 2.64 mill/uL (4.7-6.1); RED CELL DISTRIBUTION WIDTH 15.8 % (11.6-14.6); WHITE BLOOD COUNT 10.4 x1000/uL (4.5-11.0)
[2024-04-07 06:00] LABS: POTASSIUM 3.6 mEq/L (3.5-5.1)
[2024-04-07 06:01] LABS: CALCIUM 8.9 mg/dL (8.7-10.4)
[2024-04-07 06:06] LABS: CREATININE 4.4 mg/dL (0.6-1.3)
[2024-04-07 08:28] LABS: DIFFERENTIAL COMMENT 1
[2024-04-07 09:33] LABS: BG BASE EXCESS 2.7 mmol/L (-2.0-3.0); BG CARBOXYHEMOGLOBIN 0.3 % (0.5-1.5); BG DEOXYHEMOGLOBIN 1.9 % (0.0-5.0); BG FRACTION INSPIRED OXYGEN 30; BG HCO3 ACT 25.6 mmol/L (21.0-28.0); BG METHEMOGLOBIN 0.2 % (0.5-1.5); BG OXYGEN SATURATION 98.1 % (94.0-98.0); BG OXYHEMOGLOBIN 97.6 % (94.0-98.0); BG PCO2 32.4 mmHg (35.0-48.0); BG PH 7.516 (7.350-7.450); BG PO2 110.5 mmHg (83.0-108.0); BG SAMPLE SITE RIGHT RADIAL; BG TOTAL HEMOGLOBIN 8.2 g/dL (13.5-17.5); BG VENT MODE VENT - AC
[2024-04-07] MEDS: DEXTROSE 5% WATER 1,000 ML IV SCH (10:28)
[2024-04-07 15:50] LABS: PLATELET ESTIMATE NORMAL
[2024-04-07] MEDS: MEROPENEM 500MG/50ML 50 ML IV SCH (21:35)
[2024-04-07 22:44] LABS: CHLORIDE 111 mEq/L (98-107); POTASSIUM 3.4 mEq/L (3.5-5.1); SODIUM 152 mEq/L (136-145)
[2024-04-07 22:45] LABS: CALCIUM 8.7 mg/dL (8.7-10.4); CARBON DIOXIDE 26 mEq/L (21-32)
[2024-04-07 22:50] LABS: CREATININE 4.3 mg/dL (0.6-1.3); GLUCOSE 200 mg/dL (70-105)
[2024-04-07 22:52] LABS: ALANINE AMINOTRANSFERASE 19 IU/L (10-49); ALBUMIN 2.9 g/dL (3.2-4.8); ASPARTATE AMINOTRANSFERASE 44 IU/L (<34)
[2024-04-07 22:53] LABS: BILIRUBIN TOTAL 0.4 mg/dL (0.1-1.0); PROTEIN TOTAL 5.5 g/dL (6.0-8.3)
[2024-04-07 23:10] LABS: UREA NITROGEN BLOOD 150 mg/dL (9-23)
[2024-04-08] VITALS (81 sets, daily range): BP systolic 76–171; BP diastolic 52–129; PULSE 105–150; RESP 17–42; TEMP 37–39.2; O2SAT 88–100
[2024-04-08 06:00] LABS: BASOPHILS % 0.5 % (0.0-2.0); EOSINOPHILS % 1.7 % (0.0-5.0); HEMATOCRIT. 22.8 % (42.0-52.0); HEMOGLOBIN. 7.4 g/dL (14.0-18.0); LYMPHOCYTES % 9.2 % (20.0-50.0); MEAN CORPUSCULAR HGB CONC 32.5 g/dL (31.0-37.0); MEAN CORPUSCULAR VOLUME 92.3 fL (80.0-94.0); MEAN PLATELET VOLUME 9.7 fl (7.4-10.4); MONOCYTES % 12.6 % (2.0-8.0); PLATELET 219 x1000/uL (130-400); RED BLOOD CELL COUNT 2.47 mill/uL (4.7-6.1); RED CELL DISTRIBUTION WIDTH 15.3 % (11.6-14.6); WHITE BLOOD COUNT 8.7 x1000/uL (4.5-11.0)
[2024-04-08 06:02] LABS: CHLORIDE 112 mEq/L (98-107); POTASSIUM 3.8 mEq/L (3.5-5.1); SODIUM 154 mEq/L (136-145)
[2024-04-08 06:03] LABS: CARBON DIOXIDE 27 mEq/L (21-32)
[2024-04-08 06:04] LABS: CALCIUM 8.4 mg/dL (8.7-10.4)
[2024-04-08 06:08] LABS: CREATININE 4.4 mg/dL (0.6-1.3); GLUCOSE 167 mg/dL (70-105)
[2024-04-08 06:09] LABS: ALANINE AMINOTRANSFERASE 19 IU/L (10-49)
[2024-04-08 06:10] LABS: ALBUMIN 2.9 g/dL (3.2-4.8); ASPARTATE AMINOTRANSFERASE 46 IU/L (<34)
[2024-04-08 06:11] LABS: BILIRUBIN TOTAL 0.4 mg/dL (0.1-1.0); PROTEIN TOTAL 5.8 g/dL (6.0-8.3)
[2024-04-08 06:20] LABS: PROTHROMBIN TIME 11.6 sec (9.6-11.0)
[2024-04-08 06:31] LABS: UREA NITROGEN BLOOD > 150 mg/dL (9-23)
[2024-04-08] MEDS: PHENYLEPHRINE 50MG/250ML PMX 250 ML IV PRN (17:13)
[2024-04-08] MEDS ORDERED: PROPOFOL 10MG/ML 100ML 100 ML IV PRN (17:30)
[2024-04-08 20:16] LABS: POTASSIUM 3.7 mEq/L (3.5-5.1)
[2024-04-08 20:22] LABS: CREATININE 4.4 mg/dL (0.6-1.3)
[2024-04-09] VITALS (89 sets, daily range): BP systolic 78–154; BP diastolic 52–91; PULSE 74–129; RESP 19–36; TEMP 36.7–38.9; O2SAT 95–100
[2024-04-09 06:46] LABS: INR 1.1; PROTHROMBIN TIME 12.1 sec (9.6-11.0)
[2024-04-09 07:04] LABS: CALCIUM 8.4 mg/dL (8.7-10.4); POTASSIUM 3.5 mEq/L (3.5-5.1); T4 FREE 1.25 ng/dL (0.89-1.76); THYROID STIMULATING HORMONE 10.47 uIU/mL (0.55-4.78)
[2024-04-09 07:10] LABS: CREATININE 4.2 mg/dL (0.6-1.3)
[2024-04-09 07:53] LABS: BASOPHILS % 0.6 % (0.0-2.0); DIFFERENTIAL COMMENT 0; EOSINOPHILS % 1.7 % (0.0-5.0); HEMATOCRIT. 21.3 % (42.0-52.0); LYMPHOCYTES % 12.5 % (20.0-50.0); MEAN CORPUSCULAR HEMOGLOBIN 29.1 pg (28.0-32.0); MEAN CORPUSCULAR HGB CONC 32.1 g/dL (31.0-37.0); MEAN CORPUSCULAR VOLUME 90.8 fL (80.0-94.0); MEAN PLATELET VOLUME 10.6 fl (7.4-10.4); MONOCYTES % 12.7 % (2.0-8.0); NEUTROPHILS % 72.5 % (40.0-76.0); PLATELET 211 x1000/uL (130-400); RED BLOOD CELL COUNT 2.35 mill/uL (4.7-6.1); RED CELL DISTRIBUTION WIDTH 15.5 % (11.6-14.6); WHITE BLOOD COUNT 10.6 x1000/uL (4.5-11.0)
[2024-04-09 08:00] LABS: HEMOGLOBIN. 6.8 g/dL (14.0-18.0)
[2024-04-09] MEDS: MEROPENEM 500MG/50ML 50 ML IV SCH (09:48)
[2024-04-09] MEDS: LACTATED RINGERS 1,000 ML IV SCH (11:02)
[2024-04-09] MEDS: DEXMEDETOMIDINE 400 MCG/100 ML 100 ML IV PRN (11:29)
[2024-04-09 12:08] LABS: ALANINE AMINOTRANSFERASE 33 IU/L (10-49); ALBUMIN 2.9 g/dL (3.2-4.8); ASPARTATE AMINOTRANSFERASE 88 IU/L (<34); BILIRUBIN DIRECT 0.2 mg/dL (<=3.0); BILIRUBIN TOTAL 0.4 mg/dL (0.1-1.0)
[2024-04-09 12:09] LABS: PROTEIN TOTAL 5.6 g/dL (6.0-8.3)
[2024-04-09] MEDS: DIATR MEGLU/DIATRIZOATE SOLN 30ML PO SCH (15:15)
[2024-04-09 16:06] LABS: BASOPHILS % 0.6 % (0.0-2.0); EOSINOPHILS % 2.5 % (0.0-5.0); HEMATOCRIT. 23.2 % (42.0-52.0); HEMOGLOBIN. 7.6 g/dL (14.0-18.0); LYMPHOCYTES % 7.4 % (20.0-50.0); MEAN CORPUSCULAR HGB CONC 32.9 g/dL (31.0-37.0); MEAN CORPUSCULAR VOLUME 91.3 fL (80.0-94.0); MEAN PLATELET VOLUME 10.7 fl (7.4-10.4); MONOCYTES % 12.1 % (2.0-8.0); NEUTROPHILS % 77.4 % (40.0-76.0); PLATELET 202 x1000/uL (130-400); RED BLOOD CELL COUNT 2.54 mill/uL (4.7-6.1); RED CELL DISTRIBUTION WIDTH 14.8 % (11.6-14.6)
[2024-04-10] VITALS (95 sets, daily range): BP systolic 94–149; BP diastolic 49–129; PULSE 66–96; RESP 13–33; TEMP 36.9–38.5; O2SAT 87–100
[2024-04-10 05:54] LABS: BASOPHILS % 0.5 % (0.0-2.0); HEMATOCRIT. 21.3 % (42.0-52.0); HEMOGLOBIN. 7.1 g/dL (14.0-18.0); LYMPHOCYTES % 9.3 % (20.0-50.0); MEAN CORPUSCULAR HEMOGLOBIN 30.1 pg (28.0-32.0); MEAN CORPUSCULAR HGB CONC 33.3 g/dL (31.0-37.0); MEAN CORPUSCULAR VOLUME 90.5 fL (80.0-94.0); MEAN PLATELET VOLUME 10.8 fl (7.4-10.4); MONOCYTES % 11.5 % (2.0-8.0); NEUTROPHILS % 75.7 % (40.0-76.0); PLATELET 201 x1000/uL (130-400); RED BLOOD CELL COUNT 2.35 mill/uL (4.7-6.1); RED CELL DISTRIBUTION WIDTH 15.2 % (11.6-14.6); WHITE BLOOD COUNT 8.7 x1000/uL (4.5-11.0)
[2024-04-10 06:18] LABS: POTASSIUM 3.6 mEq/L (3.5-5.1)
[2024-04-10 06:20] LABS: CALCIUM 8.1 mg/dL (8.7-10.4)
[2024-04-10 06:25] LABS: CREATININE 3.7 mg/dL (0.6-1.3)
[2024-04-10] MEDS: INSULIN LISPRO 100 UNITS/ML SUBCUT SCH (12:00)
[2024-04-11] VITALS (108 sets, daily range): BP systolic 96–129; BP diastolic 57–86; PULSE 77–126; RESP 17–42; TEMP 37.66968–38.3; O2SAT 93–100
[2024-04-11] MEDS: INSULIN LISPRO 100 UNITS/ML SUBCUT SCH
[2024-04-11] MEDS ORDERED: INSULIN LISPRO 100 UNITS/ML SUBCUT SCH (03:00)
[2024-04-11] MEDS ORDERED: INSULIN LISPRO (LOW DOSE) 100 UNITS/ML SUBCUT SCH (03:00)
[2024-04-11 06:21] LABS: BASOPHILS % 0.5 % (0.0-2.0); EOSINOPHILS % 1.8 % (0.0-5.0); HEMATOCRIT. 21.2 % (42.0-52.0); HEMOGLOBIN. 7.1 g/dL (14.0-18.0); LYMPHOCYTES % 11.7 % (20.0-50.0); MEAN CORPUSCULAR HEMOGLOBIN 30.1 pg (28.0-32.0); MEAN CORPUSCULAR HGB CONC 33.3 g/dL (31.0-37.0); MEAN CORPUSCULAR VOLUME 90.5 fL (80.0-94.0); MEAN PLATELET VOLUME 10.9 fl (7.4-10.4); MONOCYTES % 13.7 % (2.0-8.0); NEUTROPHILS % 72.3 % (40.0-76.0); PLATELET 213 x1000/uL (130-400); RED BLOOD CELL COUNT 2.34 mill/uL (4.7-6.1); RED CELL DISTRIBUTION WIDTH 14.8 % (11.6-14.6); WHITE BLOOD COUNT 6.7 x1000/uL (4.5-11.0)
[2024-04-11 06:32] LABS: POTASSIUM 3.2 mEq/L (3.5-5.1)
[2024-04-11 06:33] LABS: CALCIUM 8.1 mg/dL (8.7-10.4)
[2024-04-11 06:38] LABS: CREATININE 3.7 mg/dL (0.6-1.3)
[2024-04-11 06:51] LABS: INR 1.1; PROTHROMBIN TIME 11.9 sec (9.6-11.0)
[2024-04-11] MEDS: POTASSIUM CHLORIDE 40 MEQ in DEXT 5% WATER 230 ML IV NR (09:02)
[2024-04-11] MEDS: POTASSIUM CHLORIDE 20MEQ/PACKET PO NR (09:02)
[2024-04-11 09:15] LABS: BG BASE EXCESS -1.4 mmol/L (-2.0-3.0); BG CARBOXYHEMOGLOBIN 1.7 % (0.5-1.5); BG DEOXYHEMOGLOBIN 2.6 % (0.0-5.0); BG FRACTION INSPIRED OXYGEN 30; BG HCO3 ACT 21.6 mmol/L (21.0-28.0); BG METHEMOGLOBIN 0.2 % (0.5-1.5); BG OXYGEN SATURATION 97.3 % (94.0-98.0); BG OXYHEMOGLOBIN 95.5 % (94.0-98.0); BG PCO2 28.5 mmHg (35.0-48.0); BG PH 7.498 (7.350-7.450); BG PO2 90.4 mmHg (83.0-108.0); BG SAMPLE SITE RIGHT BRACHIAL; BG TOTAL HEMOGLOBIN 6.1 g/dL (13.5-17.5); BG VENT MODE VENT - AC
[2024-04-11] MEDS ORDERED: NALOXONE HCL 0.4MG/ML VIAL IV PRN (11:15)
[2024-04-11 12:08] LABS: HEMOGLOBIN 6.1 g/dL (14.0-18.0)
[2024-04-11 12:09] LABS: HEMATOCRIT 18.6 % (42.0-52.0)
[2024-04-11] MEDS: MORPHINE SULFATE 2 MG/ML INJ (NOT FOR IM USE) IV SCH (12:27)
[2024-04-11] MEDS: LORAZEPAM 2MG/ML INJ IV PRN (12:28)
[2024-04-11] MEDS: INSULIN GLARGINE 100 UNITS/ML SUBCUT SCH (22:17)
[2024-04-11 22:29] LABS: HEMATOCRIT 26.5 % (42.0-52.0); HEMOGLOBIN 8.8 g/dL (14.0-18.0)
[2024-04-12] VITALS (102 sets, daily range): BP systolic 99–132; BP diastolic 60–83; PULSE 70–98; RESP 17–33; TEMP 36.8–39.4; O2SAT 93–100
[2024-04-12 05:25] LABS: HEMATOCRIT. 24.6 % (42.0-52.0); HEMOGLOBIN. 8.3 g/dL (14.0-18.0); MEAN CORPUSCULAR HEMOGLOBIN 30.1 pg (28.0-32.0); MEAN CORPUSCULAR HGB CONC 33.6 g/dL (31.0-37.0); MEAN CORPUSCULAR VOLUME 89.3 fL (80.0-94.0); MEAN PLATELET VOLUME 10.6 fl (7.4-10.4); PLATELET 225 x1000/uL (130-400); RED BLOOD CELL COUNT 2.75 mill/uL (4.7-6.1); RED CELL DISTRIBUTION WIDTH 14.8 % (11.6-14.6); WHITE BLOOD COUNT 6.6 x1000/uL (4.5-11.0)
[2024-04-12 05:36] LABS: POTASSIUM 3.9 mEq/L (3.5-5.1)
[2024-04-12 05:37] LABS: CALCIUM 8.3 mg/dL (8.7-10.4)
[2024-04-12 05:42] LABS: CREATININE 3.7 mg/dL (0.6-1.3)
[2024-04-12 06:07] LABS: DIFFERENTIAL COMMENT 1
[2024-04-12 09:00] LABS: BG BASE EXCESS -1.4 mmol/L (-2.0-3.0); BG CARBOXYHEMOGLOBIN 0.3 % (0.5-1.5); BG DEOXYHEMOGLOBIN 4.7 % (0.0-5.0); BG FRACTION INSPIRED OXYGEN 30; BG METHEMOGLOBIN 0.3 % (0.5-1.5); BG OXYGEN SATURATION 95.3 % (94.0-98.0); BG OXYHEMOGLOBIN 94.7 % (94.0-98.0); BG PCO2 31.7 mmHg (35.0-48.0); BG PH 7.459 (7.350-7.450); BG SAMPLE SITE RIGHT RADIAL; BG TOTAL HEMOGLOBIN 9.3 g/dL (13.5-17.5); BG TOTAL RESPIRATORY RATE 20 b/min; BG VENT MODE VENT - AC
[2024-04-12 18:16] LABS: PLATELET ESTIMATE NORMAL
[2024-04-12] MEDS: IPRATROPIUM BROMIDE (0.02%) 0.5MG/2.5ML NEB HHN SCH (21:28)
[2024-04-13] VITALS (83 sets, daily range): BP systolic 104–137; BP diastolic 61–88; PULSE 87–128; RESP 17–34; TEMP 36.9–38.3; O2SAT 92–100
[2024-04-13 06:33] LABS: HEMATOCRIT. 24.8 % (42.0-52.0); HEMOGLOBIN. 8.3 g/dL (14.0-18.0); MEAN CORPUSCULAR HEMOGLOBIN 30.7 pg (28.0-32.0); MEAN CORPUSCULAR HGB CONC 33.3 g/dL (31.0-37.0); MEAN CORPUSCULAR VOLUME 92.3 fL (80.0-94.0); RED BLOOD CELL COUNT 2.68 mill/uL (4.7-6.1); RED CELL DISTRIBUTION WIDTH 15.1 % (11.6-14.6); WHITE BLOOD COUNT 9.9 x1000/uL (4.5-11.0)
[2024-04-13 06:42] LABS: POTASSIUM 5.2 mEq/L (3.5-5.1)
[2024-04-13 06:43] LABS: CALCIUM 7.8 mg/dL (8.7-10.4)
[2024-04-13 06:47] LABS: CREATININE 3.7 mg/dL (0.6-1.3)
[2024-04-13] MEDS ORDERED: SODIUM POLYSTYRENE SULFONATE 15 G/60 ML BOT PO ONE (08:15)
[2024-04-13 08:31] LABS: DIFFERENTIAL COMMENT 1
[2024-04-13] MEDS: FUROSEMIDE 40MG/4ML VIAL IVP NR (08:55)
[2024-04-13] MEDS: SODIUM ZIRCONIUM CYCLOSILICATE 10GM/PACKET PO NR (08:57)
[2024-04-13] MEDS: MORPHINE SULFATE 2 MG/ML INJ (NOT FOR IM USE) IV NR (09:52)
[2024-04-13] MEDS: MORPHINE SULFATE 2 MG/ML INJ (NOT FOR IM USE) IV SCH (10:00)
[2024-04-13 11:16] LABS: ANISOCYTOSIS 1+; MEAN PLATELET VOLUME 11.2 fl (7.4-10.4); PLATELET 249 x1000/uL (130-400); PLATELET ESTIMATE NORMAL
[2024-04-13] MEDS: RISPERIDONE 1MG TABLET PO SCH (12:26)
[2024-04-14] VITALS (33 sets, daily range): BP systolic 91–146; BP diastolic 54–84; PULSE 109–152; RESP 23–48; TEMP 37.2–38.8; O2SAT 88–100
[2024-04-14 01:25] LABS: CHLORIDE 107 mEq/L (98-107); POTASSIUM 4.1 mEq/L (3.5-5.1); SODIUM 145 mEq/L (136-145)
[2024-04-14 01:26] LABS: CALCIUM 8.7 mg/dL (8.7-10.4); CARBON DIOXIDE 26 mEq/L (21-32)
[2024-04-14 01:31] LABS: CREATININE 3.6 mg/dL (0.6-1.3); GLUCOSE 179 mg/dL (70-105)
[2024-04-14] MEDS: ACETAMINOPHEN 325MG TABLET PO NR (02:08)
[2024-04-14] MEDS: METOPROLOL TARTRATE 5MG/5ML VIAL IV NR (02:08)
[2024-04-14] MEDS: IBUPROFEN 200MG TABLET PO NR (02:30)
[2024-04-14 03:05] LABS: UREA NITROGEN BLOOD 127 mg/dL (9-23)
[2024-04-14 05:16] LABS: CARBON DIOXIDE 24 mEq/L (21-32); CHLORIDE 108 mEq/L (98-107); POTASSIUM 3.9 mEq/L (3.5-5.1); SODIUM 148 mEq/L (136-145)
[2024-04-14 05:18] LABS: CALCIUM 8.6 mg/dL (8.7-10.4)
[2024-04-14 05:22] LABS: CREATININE 3.7 mg/dL (0.6-1.3); GLUCOSE 235 mg/dL (70-105)
[2024-04-14 05:25] LABS: PHOSPHORUS 6.7 mg/dL (2.5-4.9)
[2024-04-14 05:30] LABS: UREA NITROGEN BLOOD 130 mg/dL (9-23)
[2024-04-14 08:10] LABS: BASOPHILS % 1.1 % (0.0-2.0); EOSINOPHILS % 0.5 % (0.0-5.0); HEMATOCRIT. 24.9 % (42.0-52.0); HEMOGLOBIN. 8.2 g/dL (14.0-18.0); MEAN CORPUSCULAR HEMOGLOBIN 29.5 pg (28.0-32.0); MEAN CORPUSCULAR HGB CONC 32.9 g/dL (31.0-37.0); MEAN CORPUSCULAR VOLUME 89.9 fL (80.0-94.0); MEAN PLATELET VOLUME 10.5 fl (7.4-10.4); MONOCYTES % 9.8 % (2.0-8.0); NEUTROPHILS % 76.6 % (40.0-76.0); PLATELET 295 x1000/uL (130-400); RED BLOOD CELL COUNT 2.77 mill/uL (4.7-6.1); RED CELL DISTRIBUTION WIDTH 15.1 % (11.6-14.6); WHITE BLOOD COUNT 7.6 x1000/uL (4.5-11.0)
[2024-04-14 08:30] LABS: BASOPHILS % 0.7 % (0.0-2.0); EOSINOPHILS % 0.6 % (0.0-5.0); HEMATOCRIT. 26.2 % (42.0-52.0); HEMOGLOBIN. 8.5 g/dL (14.0-18.0); LYMPHOCYTES % 15.6 % (20.0-50.0); MEAN CORPUSCULAR HEMOGLOBIN 28.9 pg (28.0-32.0); MEAN CORPUSCULAR HGB CONC 32.4 g/dL (31.0-37.0); MEAN CORPUSCULAR VOLUME 89.3 fL (80.0-94.0); MEAN PLATELET VOLUME 10.1 fl (7.4-10.4); MONOCYTES % 11.7 % (2.0-8.0); NEUTROPHILS % 71.4 % (40.0-76.0); PLATELET 311 x1000/uL (130-400); RED BLOOD CELL COUNT 2.94 mill/uL (4.7-6.1); RED CELL DISTRIBUTION WIDTH 15.2 % (11.6-14.6); WHITE BLOOD COUNT 7.4 x1000/uL (4.5-11.0)
[2024-04-14 08:39] LABS: POTASSIUM 4.2 mEq/L (3.5-5.1)
[2024-04-14 08:40] LABS: CALCIUM 8.5 mg/dL (8.7-10.4)
[2024-04-14 08:45] LABS: CREATININE 3.7 mg/dL (0.6-1.3)
[2024-04-14 10:41] LABS: BG BASE EXCESS 0.4 mmol/L (-2.0-3.0); BG CARBOXYHEMOGLOBIN 0.6 % (0.5-1.5); BG FRACTION INSPIRED OXYGEN 30; BG HCO3 ACT 23.4 mmol/L (21.0-28.0); BG METHEMOGLOBIN 0.3 % (0.5-1.5); BG OXYHEMOGLOBIN 95.1 % (94.0-98.0); BG PCO2 31.2 mmHg (35.0-48.0); BG PH 7.492 (7.350-7.450); BG PO2 79.6 mmHg (83.0-108.0); BG SAMPLE SITE RIGHT RADIAL; BG TOTAL HEMOGLOBIN 9.1 g/dL (13.5-17.5); BG VENT MODE VENT - AC
[2024-04-14] MEDS ORDERED: AMIODARONE HCL 50MG/ML 9ML VIAL IV ONE (11:15)
[2024-04-14] MEDS: MORPHINE SULFATE 2 MG/ML INJ (NOT FOR IM USE) IV ONE (12:28)
[2024-04-14] MEDS: LORAZEPAM 2MG/ML INJ IV PRN (12:29)
[2024-04-14] MEDS: TRAZODONE HCL 50MG TABLET PO SCH (14:28)
[2024-04-14] MEDS: MORPHINE SULFATE 2 MG/ML INJ (NOT FOR IM USE) IV SCH (14:29)
[2024-04-14] MEDS: AMIODARONE HCL 900 MG in DEXT 5% WATER 500 ML IV SCH (19:51)
[2024-04-15] VITALS (27 sets, daily range): BP systolic 102–158; BP diastolic 62–82; PULSE 106–139; RESP 16–40; TEMP 37.7808–39.7; O2SAT 93–100
[2024-04-15] MEDS: DESMOPRESSIN ACETATE 4MCG/ML AMP IV SCH (01:19)
[2024-04-15 06:16] LABS: CHLORIDE 108 mEq/L (98-107); POTASSIUM 3.6 mEq/L (3.5-5.1); SODIUM 148 mEq/L (136-145)
[2024-04-15 06:20] LABS: CALCIUM 8.9 mg/dL (8.7-10.4); CARBON DIOXIDE 28 mEq/L (21-32)
[2024-04-15 06:24] LABS: ALANINE AMINOTRANSFERASE 26 IU/L (10-49)
[2024-04-15 06:25] LABS: GLUCOSE 222 mg/dL (70-105); UREA NITROGEN BLOOD 80 mg/dL (9-23)
[2024-04-15 06:26] LABS: ALBUMIN 3.1 g/dL (3.2-4.8)
[2024-04-15 06:27] LABS: ASPARTATE AMINOTRANSFERASE 41 IU/L (<34); BILIRUBIN DIRECT 0.2 mg/dL (<=3.0); BILIRUBIN TOTAL 0.4 mg/dL (0.1-1.0); PROTEIN TOTAL 6.5 g/dL (6.0-8.3)
[2024-04-15 06:28] LABS: LACTATE DEHYDROGENASE 334 IU/L (120-246)
[2024-04-15 06:34] LABS: EOSINOPHILS % 1.2 % (0.0-5.0); HEMATOCRIT. 22.9 % (42.0-52.0); HEMOGLOBIN. 7.7 g/dL (14.0-18.0); MEAN CORPUSCULAR HEMOGLOBIN 29.9 pg (28.0-32.0); MEAN CORPUSCULAR HGB CONC 33.7 g/dL (31.0-37.0); MEAN CORPUSCULAR VOLUME 88.6 fL (80.0-94.0); MEAN PLATELET VOLUME 10.2 fl (7.4-10.4); MONOCYTES % 9.9 % (2.0-8.0); NEUTROPHILS % 75.9 % (40.0-76.0); PLATELET 287 x1000/uL (130-400); RED BLOOD CELL COUNT 2.58 mill/uL (4.7-6.1); RED CELL DISTRIBUTION WIDTH 15.3 % (11.6-14.6); WHITE BLOOD COUNT 6.1 x1000/uL (4.5-11.0)
[2024-04-15] MEDS: DEXTROSE 5% WATER 1,000 ML IV SCH (07:30)
[2024-04-15 08:26] LABS: BG BASE EXCESS 0.5 mmol/L (-2.0-3.0); BG CARBOXYHEMOGLOBIN 0.5 % (0.5-1.5); BG DEOXYHEMOGLOBIN 7.2 % (0.0-5.0); BG FRACTION INSPIRED OXYGEN 30; BG HCO3 ACT 23.7 mmol/L (21.0-28.0); BG METHEMOGLOBIN 0.3 % (0.5-1.5); BG OXYGEN SATURATION 92.7 % (94.0-98.0); BG PCO2 32.2 mmHg (35.0-48.0); BG PH 7.485 (7.350-7.450); BG PO2 61.7 mmHg (83.0-108.0); BG SAMPLE SITE RIGHT RADIAL; BG TOTAL HEMOGLOBIN 8.2 g/dL (13.5-17.5); BG TOTAL RESPIRATORY RATE 38 b/min; BG VENT MODE VENT - SIMV
[2024-04-15] MEDS: ACETAMINOPHEN 1000MG/100ML 100 ML IV NR (08:48)
[2024-04-15] MEDS: METOPROLOL TARTRATE 25MG TABLET PO SCH (09:00)
[2024-04-15 16:42] LABS: CREATINE KINASE 49 IU/L (46-171); CREATINE KINASE MB FRACTION < 0.5 ng/mL (0.5-3.6); TROPONIN I HIGH SENSITIVITY 17 ng/L (3.0-53)
[2024-04-15] MEDS ORDERED: CLONIDINE 0.2MG TABLET PO PRN (18:15)
[2024-04-15] MEDS: FERROUS SULFATE 300MG/5ML UDC NG SCH (18:30)
[2024-04-15] MEDS: ASCORBIC ACID 250 MG TABLET NG SCH (18:31)
[2024-04-15 20:54] LABS: CHLORIDE 109 mEq/L (98-107); SODIUM 149 mEq/L (136-145)
[2024-04-15 20:55] LABS: CALCIUM 9.5 mg/dL (8.7-10.4); CARBON DIOXIDE 26 mEq/L (21-32)
[2024-04-15 21:00] LABS: GLUCOSE 246 mg/dL (70-105); UREA NITROGEN BLOOD 90 mg/dL (9-23)
[2024-04-15 21:02] LABS: ALANINE AMINOTRANSFERASE 28 IU/L (10-49); ALBUMIN 3.7 g/dL (3.2-4.8); ASPARTATE AMINOTRANSFERASE 37 IU/L (<34); BILIRUBIN TOTAL 0.4 mg/dL (0.1-1.0); PROTEIN TOTAL 7.5 g/dL (6.0-8.3)
[2024-04-15 21:20] LABS: CREATININE 4.2 mg/dL (0.6-1.3)
[2024-04-16] VITALS (23 sets, daily range): BP systolic 108–144; BP diastolic 62–89; PULSE 81–123; RESP 15–37; TEMP 36.8–38.7; O2SAT 96–100
[2024-04-16 04:50] LABS: CHLORIDE 110 mEq/L (98-107); POTASSIUM 3.5 mEq/L (3.5-5.1); SODIUM 151 mEq/L (136-145)
[2024-04-16 04:51] LABS: CARBON DIOXIDE 28 mEq/L (21-32)
[2024-04-16 04:52] LABS: CALCIUM 9.4 mg/dL (8.7-10.4)
[2024-04-16 04:56] LABS: CREATININE 4.4 mg/dL (0.6-1.3); GLUCOSE 166 mg/dL (70-105)
[2024-04-16 04:58] LABS: ALANINE AMINOTRANSFERASE 30 IU/L (10-49); ALBUMIN 3.4 g/dL (3.2-4.8); ASPARTATE AMINOTRANSFERASE 45 IU/L (<34)
[2024-04-16 04:59] LABS: BILIRUBIN TOTAL 0.4 mg/dL (0.1-1.0); PROTEIN TOTAL 6.9 g/dL (6.0-8.3)
[2024-04-16 05:02] LABS: UREA NITROGEN BLOOD 101 mg/dL (9-23)
[2024-04-16 08:35] LABS: BASOPHILS % 3.2 % (0.0-2.0); EOSINOPHILS % 1.2 % (0.0-5.0); HEMATOCRIT. 24.3 % (42.0-52.0); HEMOGLOBIN. 7.9 g/dL (14.0-18.0); LYMPHOCYTES % 14.5 % (20.0-50.0); MEAN CORPUSCULAR HEMOGLOBIN 29.6 pg (28.0-32.0); MEAN CORPUSCULAR HGB CONC 32.4 g/dL (31.0-37.0); MEAN CORPUSCULAR VOLUME 91.3 fL (80.0-94.0); MEAN PLATELET VOLUME 10.1 fl (7.4-10.4); MONOCYTES % 9.4 % (2.0-8.0); NEUTROPHILS % 71.7 % (40.0-76.0); PLATELET 344 x1000/uL (130-400); RED BLOOD CELL COUNT 2.66 mill/uL (4.7-6.1); WHITE BLOOD COUNT 7.2 x1000/uL (4.5-11.0)
[2024-04-16] MEDS: FAMOTIDINE 20MG/2ML VIAL IV SCH (09:19)
[2024-04-16] MEDS: POTASSIUM CHLORIDE 20MEQ/PACKET PO NR (10:25)
[2024-04-16] MEDS: DEXTROSE 5% WATER 1,000 ML IV SCH (16:28)
[2024-04-16 22:14] LABS: POTASSIUM 4.1 mEq/L (3.5-5.1)
[2024-04-16 22:15] LABS: CALCIUM 9.6 mg/dL (8.7-10.4)
[2024-04-16 22:19] LABS: CREATININE 4.4 mg/dL (0.6-1.3)
[2024-04-16 22:24] LABS: THYROID STIMULATING HORMONE 6.31 uIU/mL (0.55-4.78)
[2024-04-17] VITALS (27 sets, daily range): BP systolic 110–161; BP diastolic 55–102; PULSE 96–139; RESP 17–43; TEMP 37.7808–38.892; O2SAT 20–100
[2024-04-17] MEDS ORDERED: ACETAMINOPHEN 325MG TABLET PO PRN (03:45)
[2024-04-17] MEDS: ACETAMINOPHEN 325MG TABLET PO PRN (03:52)
[2024-04-17 06:44] LABS: BASOPHILS % 0.7 % (0.0-2.0); EOSINOPHILS % 1.7 % (0.0-5.0); HEMATOCRIT. 25.4 % (42.0-52.0); HEMOGLOBIN. 8.4 g/dL (14.0-18.0); LYMPHOCYTES % 13.3 % (20.0-50.0); MEAN CORPUSCULAR HEMOGLOBIN 29.7 pg (28.0-32.0); MEAN CORPUSCULAR HGB CONC 33.1 g/dL (31.0-37.0); MEAN CORPUSCULAR VOLUME 89.8 fL (80.0-94.0); MEAN PLATELET VOLUME 9.9 fl (7.4-10.4); MONOCYTES % 9.1 % (2.0-8.0); NEUTROPHILS % 75.2 % (40.0-76.0); PLATELET 294 x1000/uL (130-400); RED BLOOD CELL COUNT 2.82 mill/uL (4.7-6.1); WHITE BLOOD COUNT 7.6 x1000/uL (4.5-11.0)
[2024-04-17 07:03] LABS: CARBON DIOXIDE 28 mEq/L (21-32); CHLORIDE 105 mEq/L (98-107); POTASSIUM 3.8 mEq/L (3.5-5.1); SODIUM 147 mEq/L (136-145)
[2024-04-17 07:04] LABS: CALCIUM 9.3 mg/dL (8.7-10.4)
[2024-04-17 07:09] LABS: CREATININE 4.3 mg/dL (0.6-1.3); GLUCOSE 224 mg/dL (70-105)
[2024-04-17 07:11] LABS: PHOSPHORUS 4.3 mg/dL (2.5-4.9)
[2024-04-17 07:20] LABS: UREA NITROGEN BLOOD 106 mg/dL (9-23)
[2024-04-17 11:22] LABS: BG BASE EXCESS -1.9 mmol/L (-2.0-3.0); BG CARBOXYHEMOGLOBIN 0.3 % (0.5-1.5); BG DEOXYHEMOGLOBIN 1.5 % (0.0-5.0); BG FRACTION INSPIRED OXYGEN 40; BG HCO3 ACT 22.2 mmol/L (21.0-28.0); BG METHEMOGLOBIN 0.1 % (0.5-1.5); BG OXYGEN SATURATION 98.5 % (94.0-98.0); BG OXYHEMOGLOBIN 98.1 % (94.0-98.0); BG PCO2 34.8 mmHg (35.0-48.0); BG PH 7.422 (7.350-7.450); BG SAMPLE SITE RIGHT RADIAL; BG TOTAL HEMOGLOBIN 9.8 g/dL (13.5-17.5); BG VENT MODE VENT - AC
[2024-04-17] MEDS: DEXTROSE 5% WATER 1,000 ML IV SCH (18:33)
[2024-04-17] MEDS: LACTULOSE 20G/30ML UDC PO SCH (18:34)
[2024-04-17] MEDS: LACTULOSE 20G/30ML UDC PO PRN (18:34)
[2024-04-17] MEDS: LORAZEPAM 2MG/ML INJ IV PRN (21:07)
[2024-04-18] VITALS (30 sets, daily range): BP systolic 103–148; BP diastolic 68–99; PULSE 86–135; RESP 17–46; TEMP 37.3–39.4; O2SAT 95–100
[2024-04-18 07:12] LABS: BASOPHILS % 0.6 % (0.0-2.0); EOSINOPHILS % 1.5 % (0.0-5.0); HEMATOCRIT. 23.2 % (42.0-52.0); HEMOGLOBIN. 7.6 g/dL (14.0-18.0); LYMPHOCYTES % 16.5 % (20.0-50.0); MEAN CORPUSCULAR HEMOGLOBIN 29.3 pg (28.0-32.0); MEAN CORPUSCULAR HGB CONC 32.7 g/dL (31.0-37.0); MEAN CORPUSCULAR VOLUME 89.6 fL (80.0-94.0); MEAN PLATELET VOLUME 9.5 fl (7.4-10.4); MONOCYTES % 9.6 % (2.0-8.0); NEUTROPHILS % 71.8 % (40.0-76.0); PLATELET 316 x1000/uL (130-400); RED BLOOD CELL COUNT 2.58 mill/uL (4.7-6.1); RED CELL DISTRIBUTION WIDTH 14.9 % (11.6-14.6); WHITE BLOOD COUNT 8.7 x1000/uL (4.5-11.0)
[2024-04-18 07:35] LABS: POTASSIUM 3.3 mEq/L (3.5-5.1)
[2024-04-18 07:37] LABS: CALCIUM 9.4 mg/dL (8.7-10.4)
[2024-04-18 07:41] LABS: CREATININE 3.8 mg/dL (0.6-1.3)
[2024-04-18] MEDS: POTASSIUM CHLORIDE 20MEQ/PACKET PO NR (09:55)
[2024-04-18] MEDS: MORPHINE SULFATE 2 MG/ML INJ (NOT FOR IM USE) IV PRN (12:55)
[2024-04-18] MEDS: LACTULOSE 20G/30ML UDC PO SCH (14:00)
[2024-04-18] MEDS: METOPROLOL TARTRATE 50MG TABLET PO SCH (21:15)
[2024-04-19] VITALS (55 sets, daily range): BP systolic 54–177; BP diastolic 15–94; PULSE 79–184; RESP 18–46; TEMP 37.9–40.2; O2SAT 70–98
[2024-04-19 05:53] LABS: CALCIUM 10.2 mg/dL (8.7-10.4); POTASSIUM 3.1 mEq/L (3.5-5.1)
[2024-04-19 05:59] LABS: CREATININE 3.9 mg/dL (0.6-1.3)
[2024-04-19 06:27] LABS: BASOPHILS % 0.3 % (0.0-2.0); EOSINOPHILS % 0.2 % (0.0-5.0); HEMATOCRIT. 26.7 % (42.0-52.0); HEMOGLOBIN. 8.8 g/dL (14.0-18.0); LYMPHOCYTES % 11.7 % (20.0-50.0); MEAN CORPUSCULAR HEMOGLOBIN 29.8 pg (28.0-32.0); MEAN CORPUSCULAR HGB CONC 32.9 g/dL (31.0-37.0); MEAN CORPUSCULAR VOLUME 90.5 fL (80.0-94.0); MEAN PLATELET VOLUME 9.7 fl (7.4-10.4); MONOCYTES % 5.7 % (2.0-8.0); NEUTROPHILS % 82.1 % (40.0-76.0); PLATELET 378 x1000/uL (130-400); RED BLOOD CELL COUNT 2.95 mill/uL (4.7-6.1); WHITE BLOOD COUNT 13.7 x1000/uL (4.5-11.0)
[2024-04-19] MEDS ORDERED: POTASSIUM CHLORIDE 20 MEQ in DEXT 5% WATER 90 ML IV ONE (07:30)
[2024-04-19] MEDS: KCL 20MEQ/100ML PREMIX 100 ML IV NR ×2 (09:49→21:35)
[2024-04-19] MEDS: MIDODRINE HCL 5MG TABLET PO SCH (13:44)
[2024-04-19] MEDS: MIDODRINE HCL 5MG TABLET PO NR (13:49)
[2024-04-19] MEDS: ACETAMINOPHEN 650MG/20.3ML UDC NG PRN (13:50)
[2024-04-19] MEDS: PIPERACILLIN/TAZO 3.375G/50ML 50 ML IV SCH (14:05)
[2024-04-19] MEDS: VANCOMYCIN 1GM/200ML PMX (BAXTER) IV SCH (15:30)
[2024-04-19 17:05] LABS: BG BASE EXCESS -16.6 mmol/L (-2.0-3.0); BG CARBOXYHEMOGLOBIN 0.3 % (0.5-1.5); BG DEOXYHEMOGLOBIN 24.1 % (0.0-5.0); BG FRACTION INSPIRED OXYGEN 100; BG HCO3 ACT 14.3 mmol/L (21.0-28.0); BG METHEMOGLOBIN 0.3 % (0.5-1.5); BG OXYGEN SATURATION 75.8 % (94.0-98.0); BG OXYHEMOGLOBIN 75.3 % (94.0-98.0); BG PCO2 60.2 mmHg (35.0-48.0); BG PH 6.995 (7.350-7.450); BG SAMPLE SITE RIGHT BRACHIAL; BG TOTAL HEMOGLOBIN 9.7 g/dL (13.5-17.5); BG VENT MODE VENT - AC
[2024-04-19] MEDS: EPINEPHRINE 10 MG in SODIUM CHLORIDE 0.9% 240 ML IV PRN (17:50)
[2024-04-19] MEDS: SODIUM BICARBONATE 8.4% 50MEQ/50ML SYR IV NR (17:55)
[2024-04-19] MEDS ORDERED: EPINEPHRINE 10 MG in SODIUM CHLORIDE 0.9% 240 ML IV PRN (18:00)
[2024-04-19] MEDS: SODIUM BICARBONATE 150 MEQ in DEXTROSE 5% WATER 850 ML IV SCH (19:37)
[2024-04-19] MEDS: VASOPRESSIN 20 UNIT in SODIUM CHLORIDE 0.9% 99 ML IV PRN (19:38)
[2024-04-19 20:30] LABS: HEMATOCRIT 27.2 % (42.0-52.0); HEMOGLOBIN 8.3 g/dL (14.0-18.0)
[2024-04-19] MEDS: IPRATROPIUM/ALBUTEROL 0.5-3(2.5)MG/3ML NEB HHN PRN (20:31)
[2024-04-19 20:33] LABS: CHLORIDE 94 mEq/L (98-107); POTASSIUM 4.2 mEq/L (3.5-5.1); SODIUM 143 mEq/L (136-145)
[2024-04-19 20:34] LABS: CALCIUM 11.9 mg/dL (8.7-10.4); CARBON DIOXIDE 14 mEq/L (21-32)
[2024-04-19 20:39] LABS: GLUCOSE 146 mg/dL (70-105); UREA NITROGEN BLOOD 97 mg/dL (9-23)
[2024-04-19 20:41] LABS: CREATININE 6.2 mg/dL (0.6-1.3)
[2024-04-19] MEDS: NOREPINEPHRINE 8MG/250ML PMX 250 ML IV PRN (23:38)
[2024-04-20] VITALS (23 sets, daily range): BP systolic 34–91; BP diastolic 13–56; PULSE 87–106; RESP 19–30; O2SAT 88–99
[2024-04-20] MEDS: VANCOMYCIN 1GM/200ML PMX (BAXTER) IV SCH (00:25)
[2024-04-20] MEDS: PHENYLEPHRINE 50MG/250ML PMX 250 ML IV PRN (00:26)
[2024-04-20] MEDS: ACETAMINOPHEN 1000MG/100ML 100 ML IV NR (00:26)
[2024-04-20] MEDS: IPRATROPIUM/ALBUTEROL 0.5-3(2.5)MG/3ML NEB HHN SCH (02:43)
[2024-04-20] MEDS ORDERED: MORPHINE SULFATE 2 MG/ML INJ (NOT FOR IM USE) IV NR (04:00)
[2024-04-20] MEDS ORDERED: LORAZEPAM 2MG/ML INJ IV PRN (04:00)
[2024-04-20] MEDS ORDERED: MORPHINE SULFATE 2 MG/ML INJ (NOT FOR IM USE) IV PRN (04:00)
== END 2024-04-20 07:00 | DRG 5 ==
LOC: ER 15:52 → EDBEDREQ 18:20 → EDBD 20:18 → 8WST 20:18 → EDBEDREQ 20:52 → EDBEDREQSVC 20:52 → EDBEDREQTM 20:52 → MICUSO 03-18 20:00 → 5EST 04-13 20:32 → MICUSO 04-19 17:49
PROVIDERS: ADMIT Internal Medicine; ATTEND Internal Medicine
PROC: 02HV33Z Insertion of Infusion Device into Superior Vena Cava, Percutaneous Approach (ICD-10-PCS; 2024-03-18)
PROC: B548ZZA Ultrasonography of Superior Vena Cava, Guidance (ICD-10-PCS; 2024-03-18)
PROC: 5A12012 Performance of Cardiac Output, Single, Manual (ICD-10-PCS; 2024-03-18)
PROC: 5A1955Z Respiratory Ventilation, Greater than 96 Consecutive Hours (ICD-10-PCS; 2024-03-19)
PROC: 02H633Z Insertion of Infusion Device into Right Atrium, Percutaneous Approach (ICD-10-PCS; 2024-03-19)
PROC: B548ZZA Ultrasonography of Superior Vena Cava, Guidance (ICD-10-PCS; 2024-03-19)
PROC: 0BH17EZ Insertion of Endotracheal Airway into Trachea, Via Natural or Artificial Opening (ICD-10-PCS; 2024-03-19)
PROC: 5A1D70Z Performance of Urinary Filtration, Intermittent, Less than 6 Hours Per Day (ICD-10-PCS; 2024-03-19)
PROC: 5A1D70Z Performance of Urinary Filtration, Intermittent, Less than 6 Hours Per Day (ICD-10-PCS; 2024-03-21)
PROC: 5A1D70Z Performance of Urinary Filtration, Intermittent, Less than 6 Hours Per Day (ICD-10-PCS; 2024-03-23)
PROC: 5A1D70Z Performance of Urinary Filtration, Intermittent, Less than 6 Hours Per Day (ICD-10-PCS; 2024-03-25)
PROC: 4A00X4Z Measurement of Central Nervous Electrical Activity, External Approach (ICD-10-PCS; 2024-03-27)
PROC: 5A1D70Z Performance of Urinary Filtration, Intermittent, Less than 6 Hours Per Day (ICD-10-PCS; 2024-03-27)
PROC: 5A1D70Z Performance of Urinary Filtration, Intermittent, Less than 6 Hours Per Day (ICD-10-PCS; 2024-03-28)
PROC: 5A1D70Z Performance of Urinary Filtration, Intermittent, Less than 6 Hours Per Day (ICD-10-PCS; 2024-03-29)
PROC: 5A1D70Z Performance of Urinary Filtration, Intermittent, Less than 6 Hours Per Day (ICD-10-PCS; 2024-03-31)
PROC: 0B110F4 Bypass Trachea to Cutaneous with Tracheostomy Device, Open Approach (ICD-10-PCS; principal; 2024-04-02)
PROC: 30233N1 Transfusion of Nonautologous Red Blood Cells into Peripheral Vein, Percutaneous Approach (ICD-10-PCS; 2024-04-03)
PROC: 5A1D70Z Performance of Urinary Filtration, Intermittent, Less than 6 Hours Per Day (ICD-10-PCS; 2024-04-03)
PROC: 5A1D70Z Performance of Urinary Filtration, Intermittent, Less than 6 Hours Per Day (ICD-10-PCS; 2024-04-09)
PROC: 5A1D70Z Performance of Urinary Filtration, Intermittent, Less than 6 Hours Per Day (ICD-10-PCS; 2024-04-14)
PROC: 5A1D70Z Performance of Urinary Filtration, Intermittent, Less than 6 Hours Per Day (ICD-10-PCS; 2024-04-15)
PROC: 5A1D70Z Performance of Urinary Filtration, Intermittent, Less than 6 Hours Per Day (ICD-10-PCS; 2024-04-17)
PROC: 5A1D70Z Performance of Urinary Filtration, Intermittent, Less than 6 Hours Per Day (ICD-10-PCS; 2024-04-18)
PROC: 03HY32Z Insertion of Monitoring Device into Upper Artery, Percutaneous Approach (ICD-10-PCS; 2024-04-20)
DX: A41.9 Sepsis, unspecified organism (principal); I46.9 Cardiac arrest, cause unspecified; N17.0 Acute kidney failure with tubular necrosis; K55.039 Acute (reversible) ischemia of large intestine, extent unspecified; J69.0 Pneumonitis due to inhalation of food and vomit; K66.1 Hemoperitoneum; E44.0 Moderate protein-calorie malnutrition; G92.8 Other toxic encephalopathy; J80 Acute respiratory distress syndrome; K85.80 Other acute pancreatitis without necrosis or infection; K65.2 Spontaneous bacterial peritonitis; I85.10 Secondary esophageal varices without bleeding; I51.3 Intracardiac thrombosis, not elsewhere classified; E11.22 Type 2 diabetes mellitus with diabetic chronic kidney disease; D64.9 Anemia, unspecified; D75.1 Secondary polycythemia; E11.65 Type 2 diabetes mellitus with hyperglycemia; E87.5 Hyperkalemia; K70.11 Alcoholic hepatitis with ascites; K76.0 Fatty (change of) liver, not elsewhere classified; M62.82 Rhabdomyolysis; N39.0 Urinary tract infection, site not specified; R16.1 Splenomegaly, not elsewhere classified; I47.10 Supraventricular tachycardia, unspecified; D69.6 Thrombocytopenia, unspecified; E83.39 Other disorders of phosphorus metabolism; K86.89 Other specified diseases of pancreas; K56.7 Ileus, unspecified; R57.9 Shock, unspecified; E87.6 Hypokalemia; K57.30 Diverticulosis of large intestine without perforation or abscess without bleeding; E66.01 Morbid (severe) obesity due to excess calories; R65.20 Severe sepsis without septic shock; E78.1 Pure hyperglyceridemia; E83.41 Hypermagnesemia; E83.42 Hypomagnesemia; E87.0 Hyperosmolality and hypernatremia; I42.9 Cardiomyopathy, unspecified; E03.8 Other specified hypothyroidism; K40.20 Bilateral inguinal hernia, without obstruction or gangrene, not specified as recurrent; N18.6 End stage renal disease; I12.0 Hypertensive chronic kidney disease with stage 5 chronic kidney disease or end stage renal disease; S70.12XA Contusion of left thigh, initial encounter; Z99.2 Dependence on renal dialysis; X58.XXXA Exposure to other specified factors, initial encounter; F41.9 Anxiety disorder, unspecified; G35 Multiple sclerosis; F10.239 Alcohol dependence with withdrawal, unspecified; Y90.9 Presence of alcohol in blood, level not specified; Z99.11 Dependence on respirator [ventilator] status; Z79.4 Long term (current) use of insulin; Z63.4 Disappearance and death of family member; Z79.899 Other long term (current) drug therapy; Z68.43 Body mass index [BMI] 50.0-59.9, adult; Y93.89 Activity, other specified; Y92.89 Other specified places as the place of occurrence of the external cause; Y99.8 Other external cause status
CPT/HCPCS: 31500; 36415; 36556; 36573; 36600; 71045; 74018; 74176; 74177; 76700; 76705; 76937; 78580; 80048; 80053; 80061; 80076; 80202; 80305; 80320; 81003; 82010; 82024; 82105; 82140; 82150; 82247; 82248; 82270; 82375; 82533; 82550; 82553; 82570; 82607; 82728; 82746; 82805; 82962; 83036; 83519; 83540; 83550; 83605; 83615; 83735; 83880; 83930; 83935; 84100; 84132; 84145; 84156; 84295; 84300; 84439; 84443; 84478; 84481; 84484; 84681; 85014; 85018; 85025; 85027; 85044; 85379; 85651; 86376; 86705; 86709; 86850; 86900; 86920; 87070; 87340; 90935; 92950; 93005; 93306; 93970; 94002; 94003; 94070; 94640; 94664; 95816; 99291; A4606; C1725; C1752; J0282; J0610; J1171; J1815; J1940; J2003; J2004; J2060; J2185; J2248; J2250; J2270; J2405; J2470; J2543; J2560; J2597; J2704; J2765; J3010; J3370; J3411; J3480; J3490; J7030; J7050; J7060; J7070; J7120; P9016; Q0161; Q9957; Q9963; Q9967; G0480; J0131